=== PATIENT | male | born 1960 | race Caucasian/White ===

== ENCOUNTER 2023-03-06 16:15 | Emergency (ER) | payer OTHER ==
--- OUTSIDE RECORDS SUMMARY | 2023-03-06 16:19 | XMS REPORT | Continuity of Care Document ---
:1960 Author Organization [facility] t Address [address] [facility] [address] [place] [address] Care Team Providers Name Role Phone José Miguel Cordova Dimitris Primary Care Physician DOMINIQUE ALLEN Attending Clinician Unavailable KIMBERLEY WEINBERG Attending Clinician Unavailable KIMBERLEY WEINBERG Attending Clinician Unavailable , [facility] Bed Attending Clinician Unavailable Kimberley Weinberg MD Attending Clinician Doctor Unassigned, [place] Attending Clinician Unavailable AMELIE DAMON Attending Clinician Unavailable RINA PETE Attending Clinician Unavailable SYLVIA MADERA Attending Clinician Unavailable Sylvia Madera MD Attending Clinician [facility] Main Attending Clinician Unavailable Thu Morse Attending Clinician THU FERNANDEZ Attending Clinician Unavailable DOMINIQUE ALLEN M.D. Attending Clinician Unavailable YANET SYED D.O. Attending Clinician Unavailable Payers Payer Name Policy Type Policy Number Effective Date Expiration Date Edwin ayala [facility] WELLMED [id number] 2022 00:00:00 WELLMED/AARP [id number] 2022 MEDICARE ADVANTAGE 00:00:00 [employer] MEDICARE [id number] 2019 ERS 00:00:00 Problems Condition Condition Condition Status Onset Resolution Last Treating Co mments Source Name Details Category Date Date Treatment Clinician Date Acute pain Acute pain Disease Active U T of right of right -13 Health knee knee 00:00: 00 Internal Internal Disease Active UT derangemen derangemen 09-23 He alth t of right t of right 00:00: knee knee 00 Effusion Effusion Disease Active UT of knee of knee 09-23 Health joint joint 00:00: right right 00 Essential Essential Disease Active Uni vers hypertensi hypertensi 03-11 it y of on on 00:00: [place] [facility] ACC/AHA ACC/AHA Disease Active Univers stage A stage A 03-11 ity of heart heart 00:00: [place] failure failure Medical Branch Syncope, Syncope, Disease Active Unive rs unspecifie unspecifie 03-11 it y of d syncope d [place]ope [place] ACC/AHA ACC/AHA Disease Active Univers stage A stage A 03-11 ity of heart heart 00:00: [place] failure failure Medical Branch Obesity Obesity Disease Active Univers 03-11 ity of 00:00: [place] [facility] Left Left Problem Active UT shoulder shoulder Physic i pain pain ans Superior Superior Problem Active UT glenoid glenoid Physici labrum labrum ans lesion of lesion of left left shoulder, shoulder, initial initial encounter encounter Carpal Carpal Problem Active UT tunnel tunnel Physici syndrome syndrome ans of left of left wrist wrist Cubital Cubital Problem Active UT tunnel tunnel Physici syndrome syndrome ans on left on left Plantar Plantar Problem Active UT fasciitis, fasciitis, Ph ysici bilateral bilateral ans Neuropathi Neuropathi Problem Active U T c pain, c pain, Physici arm arm ans History of History of Problem Active U T cervical cervical Physic i spinal spinal ans surgery surgery Stenosis Stenosis Problem Active UT of of Physici cervical cervical ans spine spine Tarsal Tarsal Problem Active UT tunnel tunnel Physici syndrome syndrome ans of left of left side side Allergies, Adverse Reactions, Alerts Allergy Allergy Status Severity Reaction(s) Onset Inactive Treating Comm ents Source Name Type Date Date Clinician Cephalex Allergy Active UT in to 09-23 Health substanc 00:00: e 00 Ciproflo Allergy Active nauseanau UT xacin to 09-23 sea Health substanc 00:00: e 00 Clindamy Allergy Active Migraine UT jeovanny to 09-23 RODRÍGUEZ.Migrai Health substanc 00:00: ne RODRÍGUEZ. e 00 Gabapent Allergy Active Feet UT in to 09-23 swelling. Health substanc 00:00: Feet e 00 swelling. Hydrocod Allergy Active GI UT one to 09-23 upsetGI Health substanc 00:00: upset e 00 Irbesart Allergy Active Joint, UT an to 09-23 kidney Health substanc 00:00: pain.Join e 00 t, kidney pain. Testoste Allergy Active coughing. UT elie to 09-23 coughing. Health substanc 00:00: e 00 Valsarta Allergy Active joint UT n to 09-23 pain.join Health substanc 00:00: t pain. e 00 Zolpidem Allergy Active Heart UT to 09-23 palpitati Health substanc 00:00: ons, e 00 throat swelling, dysuria, diarrheaH eart palpitati ons, throat swelling, dysuria, diarrhea Amlodipi Allergy Active 2021-09 Other UT ne to 2- reaction( Health substanc 00:00: s): e 00 anaphylax is Lisinopr Allergy Active 2021-09 Other UT il to - reaction( Health substanc 00:00: s): e 00 shortness of breath NEBIVOLO DRUG Active Other-Cmnt 2018-09 Univ ers L INGREDI 09-29 ity of 00:00: [place] 00 Medical Branch Nebivolo Propensi Active Other - See 2018-09 U nivers l ty to comments 09-29 ity of adverse 00:00: [place] reaction 00 Medical s Branch Nebivolo Allergy Active 2018-09 Other UT l to 09-29 reaction( Health substanc 00:00: s): Other e 00 - See commentsS evere coughing, to the point of passing out.Sever e coughing, to the point of passing out. MELOXICA DRUG Active Other-Cmnt 2017-09 Univ ers M INGREDI 09-23 ity of 00:00: [place] 00 Medical Branch Meloxica Propensi Active 2017-09 Other UT m ty to 09-23 reaction( Health adverse 00:00: s): Other reaction 00 - See s commentsC auses bleeding in toes MUPIROCI DRUG Active Anaphylaxis Uni vers N INGREDI 03-09 ity of 00:00: [place] 00 Medical Branch LORATADI DRUG Active Other-Cmnt Univ ers NE INGREDI 03-09 ity of 00:00: [place] 00 Medical Branch IODINE DRUG Active SOB Univers INGREDI 03-09 ity of 00:00: [place] 00 Medical Branch IODINE Drug Active SOB Univers AND Class 03-09 ity of IODIDE 00:00: [place] CONTAINI 00 Medical NG Branch PRODUCTS PENICILL Drug Active ITCHING Univers INS Class - ity of 00:00: [place] 00 Medical Branch SULFA Drug Active Unknown-Cmnt Univ ers (SULFONA Class 03-09 ity of MIDE 00:00: [place] ANTIBIOT 00 Medical ICS) Branch Penicill Propensi Active Itching Unive rs ins ty to 03-09 ity of adverse 00:00: [place] reaction 00 Medical s Branch Sulfa Propensi Active Unknown - Unive rs (Sulfona ty to See comments 03-09 it y of mide adverse 00:00: [place] Antibiot reaction 00 Medica l ics) s Branch Iodine Propensi Active Shortness of Un jessika ty to Breath 03-09 ity of adverse 00:00: [place] reaction 00 Medical s Branch Iodine Propensi Active Shortness of Un jessika And ty to Breath 03-09 ity of Iodide adverse 00:00: [place] Containi reaction 00 Medica l ng s Branch Products Penicill Propensi Active Itching Unive rs ins ty to 03-09 ity of adverse 00:00: [place] reaction 00 Medical s Branch Sulfa Propensi Active Unknown - Unive rs (Sulfona ty to See comments 03-09 it y of mide adverse 00:00: [place] Antibiot reaction 00 Medica l ics) s Branch Loratadi Propensi Active Other UT ne ty to 03-09 reaction( Health adverse 00:00: s): Other reaction 00 - See s commentsU nable to urinate. Mupiroci Propensi Active Anaphylaxis U T n ty to 03-09 Health adverse 00:00: reaction 00 s Metronid Allergy Active itchingit UT azole to 11-19 con Health substanc 00:00: e 00 Sulfamet Allergy Active UT hoxazole to 11-19 Health -Trimeth substanc 00:00: oprim e 00 Iodinate Allergy Active Other UT d to 10-07 reaction( Health Contrast substanc 00:00: s): Media e 00 Anaphylax is Iodine Allergy Active Shortness of Other UT to breath 10-07 reaction( Health substanc 00:00: s): e 00 Hives, Unknown Penicill Allergy Active Itching Other UT ins to 10-07 reaction( Health substanc 00:00: s): e 00 Hives, Unknown Sulfa Allergy Active Other UT Antibiot to 10-07 reaction( Healt h ics substanc 00:00: s): e 00 Anaphylax is, Unknown Trimetho Allergy Active Other UT prim to 10-07 reaction( Health substanc 00:00: s): e 00 Anaphylax is Social History Social Habit Start Date Stop Date Quantity Comments Source History of Passive smoker [facility] tobacco use Exposure to 2022-12-24 2023-01-03 Not sure University SARS-CoV-2 00:00:00 22:39:00 [facility] (event) Supai Alcohol intake 2022-11-03 2022-11-03 [facility] 00:[facility] 00:00:00 non-drinker (finding) Tobacco use and 2022-09-23 2022-09-23 Smokeless tobacco [facility] exposure 00:00:00 00:00:00 non-user Alcohol Comment 2016-03-09 2016-03-09 once a month Univers ity of 00:00:00 00:00:00 [facility] Sex Assigned At [birth year] [facility] 00:00:00 00:00:00 Smoking Status Start Date Stop Date Source Never smoked tobacco [facility] Medications Ordered Filled Start Stop Current Ordering Indication Dosage Frequency Signature Comments Components Source Medication Medication Date Date Medication? Clinician (SIG) Name Name Azelastine- Yes Q12H every 12 UT Fluticasone - (twelve) Heal th 137-50 13:19: hours. MCG/ACT suspension benzonatate Yes 200mg Take 200 U T (Tessalon) 1-13 mg by Health 200 MG 13:19: mouth. capsule 00 Azelastine- Yes Q12H every 12 UT Fluticasone - (twelve) Heal th 137-50 13:19: hours. MCG/ACT 00 suspension benzonatate Yes 200mg Take 200 U T (Tessalon) 1-13 mg by Health 200 MG 13:19: mouth. capsule 00 Diclofenac 2022- No [id number] Apply UT Sodium 09-23 9104 [id number] topically H ealth (Voltaren) 00:00: 05:59 3D 3 (three) 1 % 00 :00 times a external day if gel needed (pain). methylPREDN 2022- No [id number] 4mg Take 1 UT ISolone 09-23 9104 tablet (4 Health (Medrol 00:00: 05:59 mg total) Dospak) 4 00 :00 by mouth 1 MG tablets (one) time for 1 dose. Use as directed by package instructio ns tiZANidine Yes UT (Zanaflex) 1-12 Health 4 MG tablet 00:00: 00 tiZANidine 0 Yes UT (Zanaflex) 1-12 Health 4 MG tablet 00:00: 00 albuterol 2021-09 Yes INHALE TWO UT 108 (90 2-12 (2) Health Base) 00:00: PUFF(S) BY MCG/ACT 00 MOUTH inhaler EVERY 6 HOURS NEEDED. bromphenira 2021-09 Yes TAKE 10 UT mine-pseudo 2-12 ML(S) BY [facility] ephedrine-D 00:00: MOUTH M 30- 00 EVERY 4 MG/5ML HOURS syrup NEEDED FOR 5 DAYS. albuterol 2021-09 Yes INHALE TWO UT 108 (90 2-12 (2) Health Base) 00:00: PUFF(S) BY MCG/ACT 00 MOUTH inhaler EVERY 6 HOURS NEEDED. bromphenira 2021-09 Yes TAKE 10 UT mine-pseudo 2-12 ML(S) BY [facility] ephedrine-D 00:00: MOUTH M 30-2-10 00 EVERY 4 MG/5ML HOURS syrup NEEDED FOR 5 DAYS. clomiPHENE 2021-09 Yes 25mg QD Take 25 mg U T (Clomid) 50 1-25 by mouth 1 He alth MG tablet 00:00: (one) time 00 each day. clomiPHENE 2021-09 Yes 25mg QD Take 25 mg U T (Clomid) 50 1-25 by mouth 1 He alth MG tablet 00:00: (one) time 00 each day. ciprofloxac 2021-09 Yes UT in (Cipro) -03 Health 500 MG 00:00: tablet 00 ciprofloxac 2021-09 Yes UT in (Cipro) 09-13 Health 500 MG 00:00: tablet 00 ALPRAZolam 2021-09 Yes 1{tbl} 1 tablet. UT (Xanax) 0.5 0-12 Health MG tablet 00:00: 00 ALPRAZolam 2021-09 Yes 1{tbl} 1 tablet. UT (Xanax) 0.5 0-12 Health MG tablet 00:00: 00 budesonide- 2020-09 Yes Q12H every 12 UT formoterol 0-05 (twelve) Healt h (Symbicort) 00:00: hours. 160-4.5 00 MCG/ACT inhaler budesonide- 2020-09 Yes Q12H every 12 UT formoterol 0-05 (twelve) Healt h (Symbicort) 00:00: hours. 160-4.5 00 MCG/ACT inhaler Diclofenac Diclofenac Yes DOMINIQUE ALLEN QD APPLY TO UT Sodium 1 % Sodium 1 % 5-28 M.D. LOWER Ph ysici GEL GEL 00:00: EXTREMITIE ans 00 S, 4 GM OF GEL TO AFFECTED AREA 4 TIMES DAILY. DO NOT APPLY MORE THAN 16 GM DAILY TO ANY ONE AFFECTED JOINT. Naproxen Naproxen 2019-0 Yes DOMINIQUE ALLEN Q0.3333D TAKE 1 UT 500 MG Oral 500 MG Oral 5-28 M.D. TABLET 3 Physici Tablet Tablet 00:00: TIMES ans 00 DAILY NEEDED. Pennsaid 2 Pennsaid 2 2019-0 Yes DOMINIQUE ALLEN Apply two UT % SOLN % SOLN 5-28 M.D. pumps Physici 00:00: (40mg) ans 00 topically to each affected area BID nebivolol 2018-09 Yes [id number] 10mg Take 10 mg Univers (BYSTOLIC) 1-19 by mouth ity o f 10 mg 15:09: daily. [place] tablet 53 Medical Branch budesonide- 2018-09 Yes [id number] 2{puff} Inhale 2 Univers formoterol 1-19 Puffs 2 ity of (SYMBICORT) 15:09: (two) [place] 160-4.5 53 times Medical mcg/actuati daily. Branch on inhaler clomiPHENE 2018-09 Yes 50mg Take 50 mg U nivers (SEROPHENE) 1-19 by mouth ity of 50 mg 15:09: daily. [place] tablet 53 Indication Medical s: / tab Branch methylPREDN 2018-09 Yes [id number] 1{packa Take 1 Univers ISolone 1-19 ge} Package by ity of (MEDROL 15:09: mouth [place] DOSE-CAROLYN) 4 53 SEE-INSTRU Me dical mg tablets CTIONS. Branch follow package directions benzonatate 2018-09 Yes [id number] 200mg Take 200 Univers (TESSALON) 1-19 mg by ity of 200 mg 15:09: mouth 3 [place] capsule 53 (three) Medical times Supai daily as needed for Cough. nebivolol 2018-09 Yes [id number] 10mg Take 10 mg Univers (BYSTOLIC) 1-19 by mouth ity o f 10 mg 15:09: daily. [place] tablet 53 Medical Branch budesonide- 2018-09 Yes [id number] 2{puff} Inhale 2 Univers formoterol 1-19 Puffs 2 ity of (SYMBICORT) 15:09: (two) [place] 160-4.5 53 times Medical mcg/actuati daily. Branch on inhaler clomiPHENE 2018-09 Yes 50mg Take 50 mg U nivers (SEROPHENE) 1-19 by mouth ity of 50 mg 15:09: daily. [place] tablet 53 Indication Medical s: /2 tab Branch methylPREDN 2018- Yes [id number] 1{packa Take 1 Univers ISolone 1-19 ge} Package by ity of (MEDROL 15:09: mouth [place] DOSE-CAROLYN) 4 53 SEE-INSTRU Me dical mg tablets CTIONS. Branch follow package directions benzonatate 2018-09 Yes [id number] 200mg Take 200 Univers (TESSALON) 1-19 mg by ity of 200 mg 15:09: mouth 3 [place] capsule 53 (three) Medical times Branch daily as needed for Cough. nebivolol 2018-09 Yes [id number] 10mg Take 10 mg Univers (BYSTOLIC) 1-19 by mouth ity o f 10 mg 15:09: daily. [place] tablet 53 Medical Branch budesonide- 2018-09 Yes [id number] 2{puff} Inhale 2 Univers formoterol 1-19 Puffs 2 ity of (SYMBICORT) 15:09: (two) [place] 160-4.5 53 times Medical mcg/actuati daily. Branch on inhaler clomiPHENE 2018-09 Yes 50mg Take 50 mg U nivers (SEROPHENE) 1-19 by mouth ity of 50 mg 15:09: daily. [place] tablet 53 Indication Medical s: 1/2 tab Branch methylPREDN 2018-09 Yes [id number] 1{packa Take 1 Univers ISolone 1-19 ge} Package by ity of (MEDROL 15:09: mouth [place] DOSE-CAROLYN) 4 53 SEE-INSTRU Me dical mg tablets CTIONS. Branch follow package directions benzonatate 2018-09 Yes [id number] 200mg Take 200 Univers (TESSALON) 1-19 mg by ity of 200 mg 15:09: mouth 3 [place] capsule 53 (three) Medical times Branch daily as needed for Cough. nebivolol 2018-09 Yes [id number] 10mg Take 10 mg Univers (BYSTOLIC) 1-19 by mouth ity o f 10 mg 15:09: daily. [place] tablet 53 Medical Branch budesonide- 2018-09 Yes [id number] 2{puff} Inhale 2 Univers formoterol 1-19 Puffs 2 ity of (SYMBICORT) 15:09: (two) [place] 160-4.5 53 times Medical mcg/actuati daily. Branch on inhaler clomiPHENE 2018-09 Yes 50mg Take 50 mg U nivers (SEROPHENE) 1-19 by mouth ity of 50 mg 15:09: daily. [place] tablet 53 Indication Medical s: 1/2 tab Branch methylPREDN 2018-09 Yes [id number] 1{packa Take 1 Univers ISolone 1-19 ge} Package by ity of (MEDROL 15:09: mouth [place] DOSE-CAROLYN) 4 53 SEE-INSTRU Me dical mg tablets CTIONS. Branch follow package directions benzonatate 2018-09 Yes [id number] 200mg Take 200 Univers (TESSALON) 1-19 mg by ity of 200 mg 15:09: mouth 3 [place] capsule 53 (three) Medical times Branch daily as needed for Cough. nebivolol 2018- Yes [id number] 10mg Take 10 mg Univers (BYSTOLIC) 1-19 by mouth ity o f 10 mg 15:09: daily. [place] tablet 53 Medical Branch budesonide- 2018-09 Yes [id number] 2{puff} Inhale 2 Univers formoterol 1-19 Puffs 2 ity of (SYMBICORT) 15:09: (two) [place] 160-4.5 53 times Medical mcg/actuati daily. Branch on inhaler clomiPHENE 2018-09 Yes 50mg Take 50 mg U nivers (SEROPHENE) 1-19 by mouth ity of 50 mg 15:09: daily. [place] tablet 53 Indication Medical s: 09/12 tab Branch methylPREDN 2018-09 Yes [id number] 1{packa Take 1 Univers ISolone 1-19 ge} Package by ity of (MEDROL 15:09: mouth [place] DOSE-CAROLYN) 4 53 SEE-INSTRU Me dical mg tablets CTIONS. Branch follow package directions benzonatate 2018- Yes [id number] 200mg Take 200 Univers (TESSALON) 1-19 mg by ity of 200 mg 15:09: mouth 3 [place] capsule 53 (three) Medical times Supai daily as needed for Cough. nebivolol 2018- Yes [id number] 10mg Take 10 mg Univers (BYSTOLIC) 1-19 by mouth ity o f 10 mg 15:09: daily. [place] tablet 53 Medical Branch budesonide- 2018-09 Yes [id number] 2{puff} Inhale 2 Univers formoterol 1-19 Puffs 2 ity of (SYMBICORT) 15:09: (two) [place] 160-4.5 53 times Medical mcg/actuati daily. Branch on inhaler clomiPHENE 2018-09 Yes 50mg Take 50 mg U nivers (SEROPHENE) 1-19 by mouth ity of 50 mg 15:09: daily. [place] tablet 53 Indication Medical s: 1/2 tab Branch methylPREDN 2018-09 Yes [id number] 1{packa Take 1 Univers ISolone 1-19 ge} Package by ity of (MEDROL 15:09: mouth [place] DOSE-CAROLYN) 4 53 SEE-INSTRU Me dical mg tablets CTIONS. Branch follow package directions benzonatate 2018- Yes [id number] 200mg Take 200 Univers (TESSALON) 1-19 mg by ity of 200 mg 15:09: mouth 3 [place] capsule 53 (three) Medical times Supai daily as needed for Cough. nebivolol 2018-09 Yes [id number] 10mg Take 10 mg Univers (BYSTOLIC) 1-19 by mouth ity o f 10 mg 15:09: daily. [place] tablet 53 Medical Branch budesonide- 2018-09 Yes [id number] 2{puff} Inhale 2 Univers formoterol 1-19 Puffs 2 ity of (SYMBICORT) 15:09: (two) [place] 160-4.5 53 times Medical mcg/actuati daily. Branch on inhaler clomiPHENE 2018-09 Yes 50mg Take 50 mg U nivers (SEROPHENE) 1-19 by mouth ity of 50 mg 15:09: daily. [place] tablet 53 Indication Medical s: 1/2 tab Branch methylPREDN 2018-09 Yes [id number] 1{packa Take 1 Univers ISolone 1-19 ge} Package by ity of (MEDROL 15:09: mouth [place] DOSE-CAROLYN) 4 53 SEE-INSTRU Me dical mg tablets CTIONS. Branch follow package directions benzonatate 2018-09 Yes [id number] 200mg Take 200 Univers (TESSALON) 1-19 mg by ity of 200 mg 15:09: mouth 3 [place] capsule 53 (three) Medical times Supai daily as needed for Cough. nebivolol 2018-09 Yes [id number] 10mg Take 10 mg Univers (BYSTOLIC) 1-19 by mouth ity o f 10 mg 15:09: daily. [place] tablet 53 Medical Branch budesonide- 2018-09 Yes [id number] 2{puff} Inhale 2 Univers formoterol 1-19 Puffs 2 ity of (SYMBICORT) 15:09: (two) [place] 160-4.5 53 times Medical mcg/actuati daily. Branch on inhaler clomiPHENE 2018-09 Yes 50mg Take 50 mg U nivers (SEROPHENE) 1-19 by mouth ity of 50 mg 15:09: daily. [place] tablet 53 Indication Medical s: 1/2 tab Branch methylPREDN 2018-09 Yes [id number] 1{packa Take 1 Univers ISolone 1-19 ge} Package by ity of (MEDROL 15:09: mouth [place] DOSE-CAROLYN) 4 53 SEE-INSTRU Me dical mg tablets CTIONS. Branch follow package directions benzonatate 2018-09 Yes [id number] 200mg Take 200 Univers (TESSALON) 1-19 mg by ity of 200 mg 15:09: mouth 3 [place] capsule 53 (three) Medical times Supai daily as needed for Cough. nebivolol 2018-09 Yes [id number] 10mg Take 10 mg Univers (BYSTOLIC) 1-19 by mouth ity o f 10 mg 15:09: daily. [place] tablet 53 Medical Branch budesonide- 2018-09 Yes [id number] 2{puff} Inhale 2 Univers formoterol 1-19 Puffs 2 ity of (SYMBICORT) 15:09: (two) [place] 160-4.5 53 times Medical mcg/actuati daily. Branch on inhaler clomiPHENE 2018-09 Yes 50mg Take 50 mg U nivers (SEROPHENE) 1-19 by mouth ity of 50 mg 15:09: daily. [place] tablet 53 Indication Medical s: 1/2 tab Branch methylPREDN 2018-09 Yes [id number] 1{packa Take 1 Univers ISolone 1-19 ge} Package by ity of (MEDROL 15:09: mouth [place] DOSE-CAROLYN) 4 53 SEE-INSTRU Me dical mg tablets CTIONS. Branch follow package directions benzonatate 2018-09 Yes [id number] 200mg Take 200 Univers (TESSALON) 1-19 mg by ity of 200 mg 15:09: mouth 3 [place] capsule 53 (three) Medical times Supai daily as needed for Cough. nebivolol 2018-09 Yes [id number] 10mg Take 10 mg Univers (BYSTOLIC) 1-19 by mouth ity o f 10 mg 15:09: daily. [place] tablet 53 Medical Branch budesonide- 2018-09 Yes [id number] 2{puff} Inhale 2 Univers formoterol 1-19 Puffs 2 ity of (SYMBICORT) 15:09: (two) [place] 160-4.5 53 times Medical mcg/actuati daily. Branch on inhaler clomiPHENE 2018-09 Yes 50mg Take 50 mg U nivers (SEROPHENE) 1-19 by mouth ity of 50 mg 15:09: daily. [place] tablet 53 Indication Medical s: /2 tab Branch methylPREDN 2018-09 Yes [id number] 1{packa Take 1 Univers ISolone 1-19 ge} Package by ity of (MEDROL 15:09: mouth [place] DOSE-CAROLYN) 4 53 SEE-INSTRU Me dical mg tablets CTIONS. Branch follow package directions benzonatate 2018-09 Yes [id number] 200mg Take 200 Univers (TESSALON) 1-19 mg by ity of 200 mg 15:09: mouth 3 [place] capsule 53 (three) Medical times Branch daily as needed for Cough. clomiPHENE 2018-09 Yes 50mg Take 50 mg U nivers (SEROPHENE) 1-19 by mouth ity of 50 mg 09:09: daily. [place] tablet 53 Indication Medical s: 09/12 tab Branch methylPREDN 2018-09 Yes [id number] 1{packa Take 1 Univers ISolone 1-19 ge} Package by ity of (MEDROL 09:09: mouth [place] DOSE-CAROLYN) 4 53 SEE-INSTRU Me dical mg tablets CTIONS. Branch follow package directions benzonatate 2018-09 Yes [id number] 200mg Take 200 Univers (TESSALON) 1-19 mg by ity of 200 mg 09:09: mouth 3 [place] capsule 53 (three) Medical times Branch daily as needed for Cough. nebivolol 2018-09 Yes [id number] 10mg Take 10 mg Univers (BYSTOLIC) 1-19 by mouth ity o f 10 mg 09:09: daily. [place] tablet 53 Medical Branch budesonide- 2018-09 Yes [id number] 2{puff} Inhale 2 Univers formoterol 1-19 Puffs 2 ity of (SYMBICORT) 09:09: (two) [place] 160-4.5 53 times Medical mcg/actuati daily. Branch on inhaler clomiPHENE 2018-09 Yes 50mg Take 50 mg U nivers (SEROPHENE) 1-19 by mouth ity of 50 mg 09:09: daily. [place] tablet 53 Indication Medical s: /2 tab Branch methylPREDN 2018-09 Yes [id number] 1{packa Take 1 Univers ISolone 1-19 ge} Package by ity of (MEDROL 09:09: mouth [place] DOSE-CAROLYN) 4 53 SEE-INSTRU Me dical mg tablets CTIONS. Branch follow package directions benzonatate 2018- Yes [id number] 200mg Take 200 Univers (TESSALON) 1-19 mg by ity of 200 mg 09:09: mouth 3 [place] capsule 53 (three) Medical times Supai daily as needed for Cough. nebivolol 2018-09 Yes [id number] 10mg Take 10 mg Univers (BYSTOLIC) 1-19 by mouth ity o f 10 mg 09:09: daily. [place] tablet 53 Medical Branch budesonide- 2018-09 Yes [id number] 2{puff} Inhale 2 Univers formoterol 1-19 Puffs 2 ity of (SYMBICORT) 09:09: (two) [place] 160-4.5 53 times Medical mcg/actuati daily. Branch on inhaler clomiPHENE 2018-09 Yes 50mg Take 50 mg U nivers (SEROPHENE) 1-19 by mouth ity of 50 mg 09:09: daily. [place] tablet 53 Indication Medical s: 1/2 tab Branch methylPREDN 2018-09 Yes [id number] 1{packa Take 1 Univers ISolone 1-19 ge} Package by ity of (MEDROL 09:09: mouth [place] DOSE-CAROLYN) 4 53 SEE-INSTRU Me dical mg tablets CTIONS. Branch follow package directions benzonatate 2018-09 Yes [id number] 200mg Take 200 Univers (TESSALON) 1-19 mg by ity of 200 mg 09:09: mouth 3 [place] capsule 53 (three) Medical times Supai daily as needed for Cough. nebivolol 2018-09 Yes [id number] 10mg Take 10 mg Univers (BYSTOLIC) 1-19 by mouth ity o f 10 mg 09:09: daily. [place] tablet 53 Medical Branch budesonide- 2018-09 Yes [id number] 2{puff} Inhale 2 Univers formoterol 1-19 Puffs 2 ity of (SYMBICORT) 09:09: (two) [place] 160-4.5 53 times Medical mcg/actuati daily. Branch on inhaler clomiPHENE 2018-09 Yes 50mg Take 50 mg U nivers (SEROPHENE) 1-19 by mouth ity of 50 mg 09:09: daily. [place] tablet 53 Indication Medical s: 1/2 tab Branch methylPREDN 2018-09 Yes [id number] 1{packa Take 1 Univers ISolone 1-19 ge} Package by ity of (MEDROL 09:09: mouth [place] DOSE-CAROLYN) 4 53 SEE-INSTRU Me dical mg tablets CTIONS. Branch follow package directions benzonatate 2018-09 Yes [id number] 200mg Take 200 Univers (TESSALON) 1-19 mg by ity of 200 mg 09:09: mouth 3 [place] capsule 53 (three) Medical times Branch daily as needed for Cough. nebivolol 2018-09 Yes [id number] 10mg Take 10 mg Univers (BYSTOLIC) 1-19 by mouth ity o f 10 mg 09:09: daily. [place] tablet 53 Medical Branch budesonide- 2018-09 Yes [id number] 2{puff} Inhale 2 Univers formoterol 1-19 Puffs 2 ity of (SYMBICORT) 09:09: (two) [place] 160-4.5 53 times Medical mcg/actuati daily. Branch on inhaler clomiPHENE 2018-09 Yes [id number] 50mg Take 1 Univers 50 mg 1-19 tablet by ity of tablet 00:00: mouth [place] 00 SEE-INSTRU Medical CTIONS. Branch Take 1/2 tab PO daily clomiPHENE 2018-09 Yes [id number] 50mg Take 1 Univers 50 mg 1-19 tablet by ity of tablet 00:00: mouth [place] 00 SEE-INSTRU Medical CTIONS. Branch Take 1/2 tab PO daily clomiPHENE 2018-09 Yes [id number] 50mg Take 1 Univers 50 mg 1-19 tablet by ity of tablet 00:00: mouth [place] 00 SEE-INSTRU Medical CTIONS. Branch Take 1/2 tab PO daily clomiPHENE 2018-09 Yes [id number] 50mg Take 1 Univers 50 mg 1-19 tablet by ity of tablet 00:00: mouth [place] 00 SEE-INSTRU Medical CTIONS. Branch Take 1/2 tab PO daily clomiPHENE 2018-09 Yes [id number] 50mg Take 1 Univers 50 mg 1-19 tablet by ity of tablet 00:00: mouth [place] 00 SEE-INSTRU Medical CTIONS. Branch Take 1/2 tab PO daily clomiPHENE 2018-09 Yes [id number] 50mg Take 1 Univers 50 mg 1-19 tablet by ity of tablet 00:00: mouth [place] 00 SEE-INSTRU Medical CTIONS. Branch Take 1/2 tab PO daily clomiPHENE 2019- Yes [id number] 50mg Take 1 Univers 50 mg 1-19 tablet by ity of tablet 00:00: mouth [facility] Medical CTIONS. Branch Take 1/2 tab PO daily clomiPHENE 2019- Yes [id number] 50mg Take 1 Univers 50 mg 1-19 tablet by ity of tablet 00:00: mouth [place] SEE-INSTR Medical CTIONS. Branch Take 1/2 tab PO daily clomiPHENE 2019- Yes [id number] 50mg Take 1 Univers 50 mg 1-19 tablet by ity of tablet 00:00: mouth [place] SEE-INSTR Medical CTIONS. Branch Take 1/2 tab PO daily clomiPHENE 2019- Yes [id number] 50mg Take 1 Univers 50 mg 1-19 tablet by ity of tablet 00:00: mouth [place] SEE-INSTR Medical CTIONS. Branch Take 1/2 tab PO daily clomiPHENE 2019- Yes [id number] 50mg Take 1 Univers 50 mg 1-19 tablet by ity of tablet 00:00: mouth SEE-INSTR Medical CTIONS. Branch Take 1/2 tab PO daily clomiPHENE 2019- Yes [id number] 50mg Take 1 Univers 50 mg 1-19 tablet by ity of tablet 00:00: mouth [place] [facility] Medical CTIONS. Branch Take 1/2 tab PO daily clomiPHENE 2019- Yes [id number] 50mg Take 1 Univers 50 mg 1-19 tablet by ity of tablet 00:00: mouth SEE-INSTR Medical CTIONS. Branch Take 1/2 tab PO daily clomiPHENE 2019- Yes [id number] 50mg Take 1 Univers 50 mg 1-19 tablet by ity of tablet 00:00: mouth SEE-INSTR Medical CTIONS. Branch Take 1/2 tab PO daily naproxen 2019-0 Yes TAKE ONE UT (Naprosyn) 7-23 TABLET BY Heal th 500 MG 00:00: MOUTH tablet 00 TWICE A DAY WITH FOOD OR MILK naproxen 2019- Yes TAKE ONE UT (Naprosyn) 7-23 TABLET BY Heal th 500 MG 00:00: MOUTH tablet 00 TWICE A DAY WITH FOOD OR MILK Vitamin D Vitamin D Yes DOMINIQUE ALLEN TAKE 1 UT (Ergocalcif (Ergocalcif 7-23 M.D. CAPSULE Physici mahamed) 1.25 mahamed) 1.25 00:00: WEEKLY. ans MG (07604 MG (54928 00 UT) Oral UT) Oral Capsule Capsule Naproxen Naproxen Yes DOMINIQUE ALLEN Q0.3333D TAKE 1 UT 500 MG Oral 500 MG Oral 7-23 M.D. TABLET 3 Physici Tablet Tablet 00:00: TIMES ans 00 DAILY NEEDED. Diclofenac Diclofenac Yes DOMINIQUE PETERSONEKS QD APPLY TO UT Sodium 1 % Sodium 1 % 7- M.D. UPPER Ph ysici GEL GEL 00:00: EXTREMITIE ans 00 S, 2 GM OF GEL TO AFFECTED AREA 4 TIMES DAILY. DO NOT APPLY MORE THAN 8 GM DAILY TO ANY ONE AFFECTED JOINT. Lyrica 75 Lyrica 75 Yes DOMINIQUE ALLEN Q0.5D TAKE 1 UT MG Oral MG Oral 1-16 M.D. CAPSULE Physic i Capsule Capsule 00:00: TWICE ans 00 DAILY. Acetaminoph Acetaminoph Yes DOMINIQUE ALLEN TAKE 1 UT en-Codeine en-Codeine 1-16 M.D. TABLET P hysici #3 300-30 #3 300-30 00:00: EVERY 4 TO ans MG Oral MG Oral 00 6 HOURS Tablet Tablet NEEDED FOR PAIN. Vital Signs Vital Name Observation Time Observation Value Comments Source Body height 2022-09-23 19:06:00 194.3 cm [facility] Body weight 2022-09-23 19:06:00 134.537 kg [facility] BMI 2022-09-23 19:06:00 35.63 [facility]2 [facility] 2020-03-30 21:20:00 136 mm[Hg] Univer sity of pressure [facility] Diastolic blood 2020-03-30 21:20:00 80 mm[facility]Hg] [facility] Heart rate 2020-03-30 21:20:00 71 /min [facility] Respiratory rate 2020-03-30 21:20:00 19 /min [facility] Body weight 2020-03-30 21:20:00 138.347 kg [facility] BMI 2020-03-30 21:20:00 35.25 kg/m2 [facility] ty of [place] [facility] Body height 2020-03-30 21:20:00 198.1 cm Universi ty of [facility] Body temperature 2020-03-30 13:53:00 36.83 Justine [facility] ersity [facility] Body height 2020-03-30 13:53:00 172.7 cm Universi ty of [facility] Oxygen saturation in 2020-03-30 13:53:00 98 /min University of Arterial blood by [facility] Pulse oximetry Branch Systolic blood 2020-02-24 13:16:00 139 mm[Hg] Univer sity of pressure [facility] Diastolic blood 2020-02-24 13:16:00 82 mm[Hg] Unive rsity of [facility] Heart rate 2020-02-24 13:16:00 80 /min Universi ty of [facility] Body temperature 2020-02-24 13:16:00 36.83 Justine [facility] Respiratory rate 2020-02-24 13:16:00 16 /min [facility] Body height 2020-02-24 13:16:00 190.5 cm Universi ty of [facility] Body weight 2020-02-24 13:16:00 137.168 kg Universi ty of [facility] BMI 2020-02-24 13:16:00 37.80 kg/m2 Universi ty of [facility] Oxygen saturation in 2020-02-24 13:16:00 98 /min University of Arterial blood by [facility] Pulse oximetry Branch Procedures Procedure Date / Time Performing Clinician Source Performed EXTERNAL PROVIDER 2022-12-29 05:01:00 Doctor Unassigned, No [facility] SLEEP STUDY DATA REPORT 2022-07-06 05:01:00 Doctor Unassigned, N o [facility] POCT URINALYSIS AUTO 2020-03-30 21:22:00 Sylvia Madera [facility] POCT URINALYSIS AUTO 2020-02-24 13:20:00 Sylvia Madera [facility] PATIENT QUESTIONNAIRE 2020-02-24 05:01:00 Doctor Unassigned, No [facility] [U] XRAY FOOT MIN 3 VWS 2019-11-04 00:00:00 [place] P hysicians LEFT [id number] Encounters Start End Encounter Admission Attending Care Care Encounter Source Date/Time Date/Time Type Type Clinicians Facility Department ID 2023-01-27 Outpatient [facility] [id number] [place] 14:24:20 [id number] [facility] 2023-01-17 Outpatient [facility] [id number] [place] 17:17:32 [id number] [facility] 2023-01-11 Outpatient [facility] [id number] [place] 14:05:56 [id number] [facility] 2022-11-18 Outpatient [facility] [id number] [place] 13:16:36 [id number] [facility] 2022-11-03 Outpatient [facility] [id number] [place] 10:59:01 [id number] [facility] 2022-10-31 Outpatient [facility] [id number] [place] 09:16:50 [id number] [facility] 2022-09-23 Outpatient [facility] [id number] [place] 12:33:28 [id number] [facility] 2022-09-16 Outpatient [facility] [id number] [place] 14:04:19 [id number] [facility] 2022-09-15 Outpatient [facility] [id number] [place] 12:11:27 [id number] [facility] 2023-03-23 2023-03-23 Outpatient DOMINIQUE ALLEN [facility] [id number] [place] 14:15:00 14:15:00 [facility] 2023-03-15 2023-03-15 Outpatient R KIMBERLEY WEINBERG [facility] [id number] [facility] 20:00:00 20:00:00 KIMBERLEY WEINBERG ity [facility] 2023-01-17 2023-01-17 Outpatient DOMINIQUE ALLEN [facility] [id number] [place] 15:30:00 16:40:09 [facility] 2023-01-03 2023-01-03 Auger Press Operator 1, Andrés Sleep Lab Bed [facility] 1. 2.840.114 [id number] [facility] 20:00:00 22:30:00 Visit Kimberley Weinberg WILLOWS 350.1.13. 10 ity [facility] [id number] [facility] [id number] [facility] 193 Branch 2023-01-03 2023-01-03 Outpatient R KIMBERLEY WEINBERG [facility] [id number] [facility] 20:00:00 20:00:00 KIMBERLEY WEINBERG itceline [facility] 2022-12-29 2022-12-29 Outpatient DOMINIQUE ALLEN [facility] [id number] [place] 15:15:00 15:15:00 Health 2022-12-29 2022-12-29 Orders Doctor EVE 1.2.840.114 [id number] [facility] 00:00:00 00:00:00 Only Unassigned, DEVON [id number] ity of [facility] [id number] [facility] [id number] [facility] 009 Branch 2022-12-15 2022-12-15 Outpatient DOMINIQUE ALLEN [facility] [id number] [place] 13:00:00 13:00:00 [facility] 2022-11-03 2022-11-03 Office Dominique Allen [facility] 1.2.840.114 [id number] [place] 09:15:00 11:00:00 Visit JIM [id number] [facility] MEDICAL 9.2.7.2.686 PLA[place] 1 [id number] 5 2022-10-31 2022-10-31 Outpatient MARISOL [facility] [id number] [place] 10:00:00 10:00:00 AMELIE [facility] 2022-09-23 2022-09-23 Outpatient [facility] [id number] [place] 00:00:00 14:18:28 [facility] 2022-09-23 2022-09-23 Office CHRIS PETE [facility] 1.2.840.114 [id number] [place] 13:30:00 14:04:00 Visit RINA BURLESON 350.1.13.58 [facility] MEDICAL [id number] PLA[place] 3 [id number] 5 2022-07-06 2022-07-06 Auger Press Operator 1, Andrés Sleep Lab Bed [facility] 1. 2.840.114 [id number] [facility] 20:00:00 22:30:00 Visit Kimberley Weinberg 350.1.13. 10 ity [facility] [id number] [id number] [facility] 193 Branch 2022-07-06 2022-07-06 Outpatient R KIMBERLEY WEINBERG [facility] [id number] Univers 20:00:00 20:00:00 KIMBERLEY WEINBERG itceline [facility] 2022-07-06 2022-07-06 Orders Doctor EVE 1.2.840.114 [id number] Univers 00:00:00 00:00:00 Only Unassigned, DEVON 350.1.13.10 ity of [facility] 4.2.7.2.686 Harry as [id number] [facility] 009 Branch 2022-07-04 2022-07-04 Outpatient R [facility] [id number] Univers 11:00:00 11:00:00 ity [facility] 2022-05-18 2022-05-18 [facility] [id number] Univers 20:00:00 20:00:00 ALEX [facility] 2022-05-17 2022-05-17 Outpatient R [facility] [id number] Univers 13:00:00 13:00:[facility] 2020-07-20 2020-07-20 [facility] [id number] Univers 15:15:00 15:15:00 [facility] 2020-07-02 2020-07-02 Outpatient [facility] [id number] Univers 13:30:00 13:30:00 [facility] 2020-03-30 2020-03-31 [facility] 1.2.840.114 [id number] Univers 15:36:03 08:19:05 Visit Sylvia Trujilloton 350.1.13.10 i ty of [place].2.[place] [facility] [id number] [place] dical [facility] 204 Branch [facility] 2020-03-30 2020-03-30 Outpatient [facility] [id number] Univers 09:00:00 09:00:00 SYLVIA ity [facility] 2020-03-27 2020-03-27 Auger Press Operator Trav, Adc Lab Main [facility] 1.2.8 40.114 [id number] Univers 13:56:24 14:11:24 Visit Sylvia Madera 350.1.13.10 ity of [place].2.[place] Profess[place] [phone] [address] 2020-03-27 2020-03-27 Outpatient R [facility] [id number] Univers 14:00:00 14:00:00 SYLVIA ity [facility] 2020-02-27 2020-02-27 [facility] 1.2.840.114 [id number] Univers 00:00:00 00:00:00 Sylvia Nicole 350.1.13.10 i ty [id number] Profess[place] [phone] [address] 2020-02-24 2020-02-24 Auger Press Operator Trav, Adc Lab Main [facility] 1.2.8 40.114 [id number] Univers 09:06:14 09:21:14 Visit Sylvia Madera 350.1.13.10 ity of [place] Profess[place] [phone] [address] 2020-02-24 2020-02-24 [facility] 1.2.840.114 [id number] Univers 07:54:16 08:49:50 Visit Syliva Rivera 350.1.13.10 i ty [place] Profess[place] [id number] [address] 2020-02-24 2020-02-24 Outpatient R [facility] [id number] Univers 08:00:00 08:00:00 SYLVIA ity [facility] 2020-02-24 2020-02-24 Orders Doctor PRADO 1.2.840.114 [id number] Univers 00:00:00 00:00:00 Only Unassigned, DEVON 350.1.13.10 [facility] 4.2.7.2.686 Harry as [phone] [address] 2020-02-20 2020-02-20 Auger Press Operator Andrés Ravi Lab Main [facility] 1.2.8 40.114 [id number] Univers 13:34:14 13:49:14 Visit Thu Fernandez 350.1.13.10 ity of [place] Profess[place] [phone] [place] dical [address] 2020-02-20 2020-02-20 Outpatient R REBECCA, [facility] [id number] Univers 13:15:00 13:15:00 THU underwood [facility] 2020-02-06 2020-02-06 Appointmen CHRIS ALLEN [facility] [id number] [place] 10:30:00 10:30:00 t; DOMINIQUE ALLEN M.D. - Jim FOX M.D. [facility] 2020-01-30 2020-01-30 Outpatient R ALZWERI, [facility] [id number] Univers 15:30:00 15:30:00 SYLVIA kj [facility] 2020-01-28 2020-01-28 Outpatient R GRAMM, [facility] [id number] Univers 09:00:00 09:00:00 THU underwood [facility] 2019-11-05 2019-11-05 Appointmen CHRIS ALLEN [facility]oped[facility] [id number] [place] 10:00:00 10:00:00 t; DOMINIQUE ALLEN M.D. - [place] [facility] EVAN, M.D. [facility] 2019-09-19 2019-09-19 Appointmen [facility] [facility] UTP [id number] [place] 13:30:00 13:30:00 t; DOMINIQUE ALLEN M.D. P hysici EVAN, M.D. [facility] 2019-05-16 2019-05-16 Appointmustapha SYED [facility] [id number] [place] 10:15:00 10:15:00 t; YANET SYED D.O. P hysici JASON, ans D.OBiju 2019-04-25 2019-04-25 Appointmen [place], [facility] UTP [id number] [place] 10:30:00 10:30:00 t; DOMINIQUE ALLEN M.D. P sujatha FOX M.D. ans 2019-04-02 2019-04-02 [facility] [id number] [place] 15:15:00 15:15:00 t; DOMINIQUE ALLEN M.D. P hysici EVAN, M.D. ans 2018-12-25 2018-12-25 [facility] [id number] [place] 10:00:00 10:00:00 t; DOMINIQUE ALLEN M.D. P hysici EVAN, M.D. ans 2018-10-30 2018-10-30 [facility] [place] [id number] [place] 10:15:00 10:15:00 t; DOMINIQUE ALLEN M.D. P hysici EVAN, M.D. ans 2018-07-31 2018-07-31 [facility] [place] UTP [id number] [place] 10:30:00 10:30:00 t; DOMINIQUE ALLEN M.D. P hysici EVAN, M.D. ans 2018-05-31 2018-05-31 [facility] [place] UTP [id number] [place] 11:00:00 11:00:00 t; DOMINIQUE ALLEN M.D. P hysici EVAN, M.D. ans 2018-03-20 2018-03-20 [facility] [place], [facility] UTP [id number] [place] 10:15:00 10:15:00 t; DOMINIQUE ALLEN M.D. P hysici EVAN, M.D. ans 2017-12-19 2017-12-19 Appointmen [place], [facility] UTP [id number] [place] 10:15:00 10:15:00 t; DOMINIQUE ALLEN M.D. P hysici EVAN, M.D. ans 2017-11-07 2017-11-07 [facility] [place] UTP [id number] [place] 10:45:00 10:45:00 t; DOMINIQUE ALLEN M.D. P sujatha FOX M.D. ans Results Test Description Test Time Test Comments Results Result Comments Source POCT URINALYSIS, INSTRUMENT 2020-03-30 21:24:00 Test Item Value Reference Range Interpretation Comme nts POCT U SP GRAV (test code = 3255) 1.015 mg/dl 1.005-1.025 POCT PH U (test code = 3254) 7.5 mg/dl 5-8 POCT U LEUK EST (test code = 3263) negative Negative - Negative POCT U NIT (test code = 3262) negative Negative - Negative POCT U PROT (test code = 3259) negative Negative - Negative POCT U GLU (test code = 3256) negative Negative - Negative POCT U KETONE (test code = 3258) negative Negative - Negative POCT U UROBILI (test code = 3260) 0.2 mg/dl 0.2-1 POCT U BILI (test code = 3261) negative Negative - Negative POCT U BLD (test code = 3257) negative Negative - Negative POCT U COLOR (test code = 3266) yellow POCT U APPEAR (test code = 3267) clear [facility] [id number] 21:24:00 Test Item Value Reference Range Interpretation Comments POCT U SP GRAV (test code = 1.015 mg/dl 1.005-1.025 3255) POCT PH U (test code = 3254) 7.5 mg/dl 5-8 POCT U LEUK EST (test code = negative Negative - Negative 3263) POCT U NIT (test code = 3262) negative Negative - Negative POCT U PROT (test code = negative Negative - Negative 3259) POCT U GLU (test code = 3256) negative Negative - Negative POCT U KETONE (test code = negative Negative - Negative 3258) POCT U UROBILI (test code = 0.2 mg/dl 0.2-1 3260) POCT U BILI (test code = negative Negative - Negative 3261) POCT U BLD (test code = 3257) negative Negative - Negative POCT U COLOR (test code = yellow 3266) POCT U APPEAR (test code = clear 3267) [facility] [id number] 21:24:00 Test Item Value Reference Range Interpretation Comments POCT U SP GRAV (test code = 1.015 mg/dl 1.005-1.025 3255) POCT PH U (test code = 3254) 7.5 mg/dl 5-8 POCT U LEUK EST (test code = negative Negative - Negative 3263) POCT U NIT (test code = 3262) negative Negative - Negative POCT U PROT (test code = negative Negative - Negative 3259) POCT U GLU (test code = 3256) negative Negative - Negative POCT U KETONE (test code = negative Negative - Negative 3258) POCT U UROBILI (test code = 0.2 mg/dl 0.2-1 3260) POCT U BILI (test code = negative Negative - Negative 3261) POCT U BLD (test code = 3257) negative Negative - Negative POCT U COLOR (test code = yellow 3266) POCT U APPEAR (test code = clear 3267) [facility] URINALYSIS, [id number] 13:21:00 Test Item Value Reference Range Interpretation Comments POCT U SP GRAV (test code = 1.030 mg/dl 1.005-1.025 A 3255) POCT PH U (test code = 3254) 5.5 mg/dl 5-8 POCT U LEUK EST (test code = Negative Negative - Negative 3263) POCT U NIT (test code = 3262) Negative Negative - Negative POCT U PROT (test code = Negative Negative - Negative 3259) POCT U GLU (test code = 3256) Negative Negative - Negative POCT U KETONE (test code = Negative Negative - Negative 3258) POCT U UROBILI (test code = 0.2 mg/dl 0.2-1 3260) POCT U BILI (test code = Negative Negative - Negative 3261) POCT U BLD (test code = 3257) Negative Negative - Negative POCT U COLOR (test code = yellow 3266) POCT U APPEAR (test code = clear 3267) Lab Interpretation (test code Abnormal = 59001-3) [facility] URINALYSIS, [id number] 13:21:00 Test Item Value Reference Range Interpretation Comments POCT U SP GRAV (test code = 1.030 mg/dl 1.005-1.025 A 3255) POCT PH U (test code = 3254) 5.5 mg/dl 5-8 POCT U LEUK EST (test code = Negative Negative - Negative 3263) POCT U NIT (test code = 3262) Negative Negative - Negative POCT U PROT (test code = Negative Negative - Negative 325) POCT U GLU (test code = 3256) Negative Negative - Negative POCT U KETONE (test code = Negative Negative - Negative 3258) POCT U UROBILI (test code = 0.2 mg/dl 0.2-1 3260) POCT U BILI (test code = Negative Negative - Negative 326) POCT U BLD (test code = 3257) Negative Negative - Negative POCT U COLOR (test code = yellow 3266) POCT U APPEAR (test code = clear 3266) Lab Interpretation (test code Abnormal = 55097-3) [facility]
[2023-03-06 16:37] LABS: Absolute Lymphocytes (CBC) 2.8 K/uL (0.7-4.9); Hematocrit 44.1 % (39.6-49.0); Lymphocytes % 26.7 % (15.3-44.8); MCV 89.2 fL (80-100); MPV 7.1 fL (7.6-11.3); RBC Red Blood Cell Count 4.95 M/uL (4.33-5.43)
[2023-03-06] MEDS ORDERED: MAGNESIUM SULFATE 1 gm IVPB 1 GM/100 ML BAG IV ONE (16:40)
[2023-03-06] MEDS ORDERED: ONDANSETRON 4 MG/2 ML VIAL ONE (16:40)
[2023-03-06] MEDS ORDERED: TAMSULOSIN 0.4 MG SR CAP ONE (16:40)
[2023-03-06] MEDS ORDERED: NA CHLORIDE 0.9% 1,000 ML ONE (16:40)
[2023-03-06] MEDS ORDERED: MORPHINE 4 MG/ML SYR ONE (16:40)
[2023-03-06 16:46] LABS: Protime INR 1.07
[2023-03-06 16:55] LABS: Albumin 3.9 g/dL (3.4-5.0); Bilirubin Total 0.3 mg/dL (0.2-1.0); Potassium 3.5 mEq/L (3.5-5.1); Protein, Total 8.2 g/dL (6.4-8.2)
[2023-03-06 16:56] LABS: Specific Gravity 1.024 (1.005-1.030); Urine Bacteria 20-50 /HPF (<20); Urine Bilirubin NEGATIVE (Negative); Urine Blood 3+ (OVER) (Negative); Urine Clarity Extremely Turbid (Clear); Urine Color Light-Orange (Yellow); Urine Crystals Unidentified Few /HPF (None Seen); Urine Glucose NEGATIVE (Negative); Urine Mucus 2+ /HPF (None Seen); Urine Protein 2+ (Negative); Urine RBC >50 /HPF (None Seen); Urine Urobilinogen Normal (Normal); Urine pH 5.5 (5.0-7.0)
--- NOTE | 2023-03-06 17:43 | RAD REPORT ---
EXAM DESCRIPTION: CT - [place] Protocol - 03/06/2023 5:28 pm CLINICAL HISTORY: Abdominal pain. Left flank pain COMPARISON: None. TECHNIQUE: Computed axial tomography of the abdomen pelvis was obtained without oral or IV contrast. Lack of IV and oral contrast limits evaluation of solid organs, appendix, bowel, and vessels. Rivera l reformatted images were obtained and reviewed. All CT scans are performed using dose optimization technique as appropriate and may include automated exposure control or mA/KV adjustment according to patient size. FINDINGS: 2 millimeter calculus distal left ureter with mild hydronephrosis Renal calculus is not seen. No right ureteral calculus The liver, spleen, pancreas and adrenals appear grossly normal There is no evidence of diverticulitis. Mild posterior subluxation of L5 on S1. Small to moderate umbilical hernia IMPRESSION: 2 millimeter calculus distal left ureter with mild left hydronephrosis
[2023-03-06] MEDS ORDERED: PROMETHAZINE INJ 25 MG/ML AMP ONE (18:10)
[2023-03-06] MEDS ORDERED: MORPHINE 2 MG/ML SYR ONE (18:13)
[2023-03-06] MEDS ORDERED: HYDROMORPHONE HCL 1 MG/ML INJ ONE (19:46)
--- NOTE | 2023-03-06 20:41 | EDPHYS ---
Physician Documentation [facility] Name: David Rivera Sr Age: 62 yrs Sex: Male : 1960 Arrival Date: 03/06/2023 Time: 16:15 Bed 20 Private MD: José Miguel Cordova E ED Physician Levon Donis HPI: 03/06 16:23 This 62 yrs old Male presents to ER via Unassigned with complaints of Vomiting, Flank rn Pain. 16:23 The patient complains of pain in the left mid back. The pain radiates to the abdomen. rn Onset: The symptoms/episode began/occurred yesterday. Modifying factors: The symptoms are alleviated by nothing. the symptoms are aggravated by nothing. Associated signs and symptoms: Pertinent positives: dysuria, hematuria, nausea, vomiting, Pertinent negatives: fever. Severity of pain: At its worst the pain was moderate in the emergency department the pain is unchanged. The patient has not experienced similar symptoms in the past. The patient has not recently seen a physician. Historical: - Allergies: 16:28 Iodinated Contrast Media - IV Dye; ss 16:28 Naproxen; ss 16:28 meloxicam; ss 16:28 PENICILLINS; ss 16:28 Sulfa (Sulfonamide Antibiotics); ss 16:28 "ALL BP MEDS"; ss - PMHx: 16:28 Hypertensive disorder; ss - Immunization history:: Client reports having NOT received the Covid vaccine. - Social history:: Smoking status: Patient denies any tobacco usage or history of. - Family history:: not pertinent. - Hospitalizations: : No recent hospitalization is reported. ROS: 16:23 Constitutional: Negative for fever, chills, and weight loss, Cardiovascular: Negative rn for chest pain, palpitations, and edema, Respiratory: Negative for shortness of breath, cough, wheezing, and pleuritic chest pain, Abdomen/GI: + left flank pain with nausea/vomiting Back: + left flank pain : Negative for injury MS/Extremity: Negative for injury and deformity, Neuro: Negative for headache, weakness, numbness, tingling, and seizure. Exam: 16:23 Constitutional: This is a well developed, well nourished patient who is awake, alert, rn + appears uncomfortable Head/Face: Normocephalic, atraumatic. Cardiovascular: Tachycardic, regular. No pulse deficits. Respiratory: No increased work of breathing, no retractions or nasal flaring. Abdomen/GI: soft, non focal tenderness Back: No spinal tenderness. No costovertebral tenderness. Full range of motion. Skin: Warm, dry MS/ Extremity: Pulses equal, no cyanosis. Neuro: Awake and alert, GCS 15 Vital Signs: 16:27 Pulse 129; Resp 26; Pulse Ox 98% on R/A; Weight 133.81 kg; Height 6 ft. 6 in. ; Pain ss 10/10; 16:29 BP 156 / 95; ss 17:00 BP 162 / 113; Pulse 86; Resp 20; Pulse Ox 99% on R/A; eh3 18:00 BP 146 / 87; Pulse 78; Resp 22; Pulse Ox 95% on R/A; eh3 19:50 BP 149 / 87; Pulse 93; Resp 17 S; Pulse Ox 96% on R/A; ha1 20:50 BP 164 / 77; Pulse 93; Resp 17 S; Pulse Ox 96% on R/A; ha1 16:27 Body Mass Index 34.09 (133.81 kg, 198.12 cm) ss 16:27 Pain Scale: Adult ss MDM: 16:17 Patient medically screened. rn 20:38 Differential diagnosis: nephrolithiasis, UTI. Data reviewed: vital signs, nurses notes, turntable engineer test result(s), radiologic studies, CT scan, and as a result, I will discharge patient. Counseling: I had a detailed discussion with the patient and/or guardian regarding: the historical points, exam findings, and any diagnostic results supporting the discharge/admit diagnosis, lab results, radiology results, the need for outpatient follow up, to return to the emergency department if symptoms worsen or persist or if there are any questions or concerns that arise at home. Response to treatment: the patient's symptoms have markedly improved after treatment, and as a result, I will discharge patient. 20:39 Special discussion: I discussed with the patient/guardian in detail that at this point rn there is no indication for admission to the hospital. It is understood, however, that if the symptoms persist or worsen the patient needs to return immediately for re-evaluation. ED course: Pt resting comfortably, feels much better, will dc home as distal 2mm calculus. Return precautions given and understood. . 03/06 16:19 Order name: CBC with Diff; Complete Time: 17: rn 03/06 16:19 Order name: CMP; Complete Time: 17: rn 03/06 16:19 Order name: Lipase; Complete Time: 17: rn 03/06 16:19 Order name: Urinalysis w/ reflexes; Complete Time: 17: rn 03/06 16:23 Order name: Protime (+inr); Complete Time: 17: rn 03/06 16:23 Order name: Ptt, Activated; Complete Time: 17: rn 03/06 17:02 Order name: Urine Culture EDMO 03/06 16:19 Order name: CT Stone Protocol; Complete Time: 17:52 rn 03/06 16:19 Order name: IV Saline Lock; Complete Time: 16: rn 03/06 16:19 Order name: Labs collected and sent; Complete Time: 16:31 rn Administered Medications: 16:40 Drug: NS 0.9% IV 1000 ml Route: IV; Rate: 1 bolus; Site: right antecubital; ss 16:42 Drug: Ondansetron IVP 4 mg Route: IVP; Site: right antecubital; ss 18:20 Follow up: Response: No adverse reaction eh3 16:42 Drug: morphine IVP or IV 4 mg Route: IVP; Infused Over: 4 mins; Site: right antecubital;ss 18:20 Follow up: Response: No adverse reaction eh3 16:45 Drug: Magnesium Sulfate IVPB 1 grams Route: IVPB; Infused Over: 1 hrs; Site: right ss antecubital; 16:48 Drug: Flomax PO 0.4 mg Route: PO; ss 18:20 Follow up: Response: No adverse reaction eh3 18:10 Drug: morphine IVP or IV 1 mg Route: IVP; Infused Over: 2 mins; Site: right antecubital;eh3 18:10 Drug: Promethazine IVP 12.5 mg Route: IVP; Site: right antecubital; eh3 19:53 Drug: HYDROmorphone IVP 1 mg Route: IVP; Site: right antecubital; ha1 20:20 Follow up: Response: No adverse reaction; Pain is decreased; RASS: Alert and Calm (0) ha1 20:50 Drug: Ciprofloxacin PO 500 mg Route: PO; ha1 21:03 Follow up: Response: No adverse reaction ha1 Disposition Summary: 03/06/23 20:40 Discharge Ordered Location: Home rn Problem: new rn Symptoms: have improved rn Condition: Stable rn Diagnosis - Calculus of ureter rn - UTI/ Urinary tract infection, site not specified rn Followup: rn - With: Private Physician - When: As needed - Reason: Recheck today's complaints, Re-evaluation by your physician Discharge Instructions: - Discharge Summary Sheet rn - Kidney Stones rn - Renal Colic rn - Urinary Tract Infection, Adult rn Forms: - Medication Reconciliation Form rn - Thank You Letter rn - Antibiotic manufacturing engineering intern - Prescription Opioid Use rn - [email or web address] rn Prescriptions: - acetaminophen-codeine 300-30 mg Oral tablet - take 1 tablet by ORAL route every 8 hours As needed; 12 tablet; Refills: 0, rn Product Selection Permitted - ondansetron 4 mg Oral Tablet,disintegrating - take 1 tablet by ORAL route every 8 hours As needed; 15 tablet; Refills: 0, rn Product Selection Permitted - tamsulosin 0.4 mg Oral capsule - take 1 capsule by ORAL route every 24 hours As needed Do not take if you are rn not passing a kidney stone, can cause low blood pressure; 10 capsule; Refills: 0, Product Selection Permitted - Cipro 500 mg Oral Tablet - take 1 tablet by ORAL route every 12 hours for 7 days; 14 tablet; Refills: 0, rn Product Selection Permitted Signatures: Dispatcher [employer] Levon Mejia MD MD rn Blanchard, Shelby, RN RN Cassidy Madera RN RN 3 Mariam Zhang RN RN 1
--- NOTE | 2023-03-06 20:41 | ER ---
Nurse's Notes [facility] Name: David Rivera Sr Age: 62 yrs Sex: Male : 1960 Arrival Date: 03/06/2023 Time: 16:15 Bed 20 Private MD: José Miguel Cordova E Diagnosis: Calculus of ureter;UTI/ Urinary tract infection, site not specified Presentation: 03/06 16:27 Chief complaint: Patient states: sudden onset of flank pain, N/V. Coronavirus screen: ss Client denies travel out of the [place] in the last 14 days. Ebola Screen: Patient denies exposure to infectious person. Patient denies travel to an Ebola-affected area in the 21 days before illness onset. Initial Sepsis Screen: Does the patient meet any 2 criteria? No. Patient's initial sepsis screen is negative. Does the patient have a suspected source of infection? No. Patient's initial sepsis screen is negative. Risk Assessment: Do you want to hurt yourself or someone else? Patient reports no desire to harm self or others. Onset of symptoms was March 06, 2023. 16:27 Method Of Arrival: Ambulatory ss 16:27 Acuity: KAITLYN 2 Triage Assessment: 19:20 General: Appears uncomfortable, Behavior is cooperative. GI:. GI: Abdomen is round ha1 non-distended, Reports pain in the lower pelvic that radiates to the back. Historical: - Allergies: 16:28 Iodinated Contrast Media - IV Dye; ss 16:28 Naproxen; ss 16:28 meloxicam; ss 16:28 PENICILLINS; ss 16:28 Sulfa (Sulfonamide Antibiotics); ss 16:28 "ALL BP MEDS"; ss - PMHx: 16:28 Hypertensive disorder; ss - Immunization history:: Client reports having NOT received the Covid vaccine. - Social history:: Smoking status: Patient denies any tobacco usage or history of. - Family history:: not pertinent. - Hospitalizations: : No recent hospitalization is reported. Screenin:30 [facility] ED Fall Risk Assessment (Adult) Score/Fall Risk Level 0 - 2 = Low Risk. Abuse eh3 screen: Denies threats or abuse. Denies injuries from another. Nutritional screening: No deficits noted. Tuberculosis screening: No symptoms or risk factors identified. Assessment: 16:30 General: Appears distressed, uncomfortable, Behavior is cooperative, anxious, restless. eh3 Pain: Complains of pain in left flank. Neuro: Level of Consciousness is awake, alert, obeys commands, Oriented to person, place, time, situation. Cardiovascular: Capillary refill < 3 seconds Patient's skin is warm and dry. Respiratory: Airway is patent Respiratory effort is even, unlabored, Respiratory pattern is regular, symmetrical. GI: Abdomen is round non-distended. Derm: Skin is pink, warm \\T\\ dry. Musculoskeletal: Circulation, motion, and sensation intact. 16:48 Reassessment: RASS score 0 at this time. PT reports pain decreased from 10/10 to 6/10. ss 17:30 Reassessment: Patient and/or family updated on plan of care and expected duration. Pain eh3 level reassessed. Patient is alert, oriented x 3, equal unlabored respirations, skin warm/dry/pink. 18:30 Reassessment: Patient and/or family updated on plan of care and expected duration. Pain eh3 level reassessed. Patient is alert, oriented x 3, equal unlabored respirations, skin warm/dry/pink. 19:50 General: Appears uncomfortable, Behavior is cooperative. Pain: Complains of pain in ha1 back and left mid back. Neuro: Level of Consciousness is awake, alert, obeys commands, Oriented to person, place, time, situation. Cardiovascular: Patient's skin is warm and dry. Respiratory: Respiratory effort is even, unlabored, Respiratory pattern is regular, symmetrical. GI: Abdomen is round non-distended. Derm: Skin is pink, warm \\T\\ dry. Musculoskeletal: Circulation, motion, and sensation intact. 20:50 Reassessment: Patient and/or family updated on plan of care and expected duration. Pain ha1 level reassessed. Patient is alert, oriented x 3, equal unlabored respirations, skin warm/dry/pink. pain 5/10 Patient states symptoms have improved. Vital Signs: 16:27 Pulse 129; Resp 26; Pulse Ox 98% on R/A; Weight 133.81 kg; Height 6 ft. 6 in. ; Pain ss 10/10; 16:29 BP 156 / 95; ss 17:00 BP 162 / 113; Pulse 86; Resp 20; Pulse Ox 99% on R/A; eh3 18:00 BP 146 / 87; Pulse 78; Resp 22; Pulse Ox 95% on R/A; eh3 19:50 BP 149 / 87; Pulse 93; Resp 17 S; Pulse Ox 96% on R/A; ha1 20:50 BP 164 / 77; Pulse 93; Resp 17 S; Pulse Ox 96% on R/A; ha1 16:27 Body Mass Index 34.09 (133.81 kg, 198.12 cm) ss 16:27 Pain Scale: Adult ss ED Course: 16:15 Patient arrived in ED. rg4 16:16 José Miguel Cordova MD is Private Physician. rg4 16:17 Levon Donis MD is Attending Physician. rn 16:28 Triage completed. ss 16:28 Arm band placed on left wrist. ss 16:30 Cassidy Madera, THEO is Primary Nurse. eh3 16:30 Patient has correct armband on for positive identification. Bed in low position. Call 3 light in reach. Pulse ox on. NIBP on. 16:31 Initial lab(s) drawn, by me, sent to lab. Inserted saline lock: 20 gauge in right em1 antecubital area, using aseptic technique. Blood collected. 16:46 Urinalysis w/ reflexes Sent. ss 17:30 CT Stone Protocol In Process Unspecified. EDMS 19:00 Report given to THEO Becerra. eh3 21:13 No provider procedures requiring assistance completed. IV discontinued, intact, ha1 bleeding controlled, No redness/swelling at site. Pressure dressing applied. Administered Medications: 16:40 Drug: NS 0.9% IV 1000 ml Route: IV; Rate: 1 bolus; Site: right antecubital; 16:42 Drug: Ondansetron IVP 4 mg Route: IVP; Site: right antecubital; 18:20 Follow up: Response: No adverse reaction eh3 16:42 Drug: morphine IVP or IV 4 mg Route: IVP; Infused Over: 4 mins; Site: right antecubital;ss 18:20 Follow up: Response: No adverse reaction eh3 16:45 Drug: Magnesium Sulfate IVPB 1 grams Route: IVPB; Infused Over: 1 hrs; Site: right ss antecubital; 16:48 Drug: Flomax PO 0.4 mg Route: PO; ss 18:20 Follow up: Response: No adverse reaction eh3 18:10 Drug: morphine IVP or IV 1 mg Route: IVP; Infused Over: 2 mins; Site: right antecubital;eh3 18:10 Drug: Promethazine IVP 12.5 mg Route: IVP; Site: right antecubital; 3 19:53 Drug: HYDROmorphone IVP 1 mg Route: IVP; Site: right antecubital; ha1 20:20 Follow up: Response: No adverse reaction; Pain is decreased; RASS: Alert and Calm (0) ha1 20:50 Drug: Ciprofloxacin PO 500 mg Route: PO; ha1 21:03 Follow up: Response: No adverse reaction ha1 Medication: 21:13 VIS not applicable for this client. ha1 Outcome: 20:40 Discharge ordered by . rn 21:13 Discharged to home ambulatory. ha1 21:13 Condition: stable 21:13 Discharge instructions given to patient, Instructed on discharge instructions, follow up and referral plans. medication usage, Demonstrated understanding of instructions, follow-up care, medications, Prescriptions given X 3. 21:15 Patient left the ED. ha1 Signatures: Dispatcher [employer] EDMS Levon Donis MD MD rn Martinez, Eric em1 Darlene Hatch RN RN ss Garcia, Rubi 4 Cassidy Madera RN RN 3 Mariam Zhang RN RN ha1 Corrections: (The following items were deleted from the chart) 21:13 21:11 Response: No adverse reaction; Pain is decreased; RASS: Alert and Calm (0) ha1 ha1
[2023-03-06] MEDS ORDERED: CIPROFLOXACIN HCL 500 MG TAB ONE (20:53)
[2023-03-06 21:26] VITALS: O2SAT 96
[2023-03-06 21:28] VITALS: BP 164/77
== END 2023-03-06 21:15 | disposition home or self-care (01) ==
LOC: ER 16:15
DX: N39.0 Urinary tract infection, site not specified (principal); N20.1 Calculus of ureter; I10 Essential (primary) hypertension; Z88.0 Allergy status to penicillin; Z88.2 Allergy status to sulfonamides; Z88.5 Allergy status to narcotic agent; Z88.8 Allergy status to other drugs, medicaments and biological substances; Z91.041 Radiographic dye allergy status
CPT/HCPCS: 87088; 85025; 81001; 87086; 36415; 85610; 85730; 83690; 80053; 76377; 74176; J2550; J3475; J2270; J1170; J2405; J7030

== ENCOUNTER 2024-02-13 14:06 | Emergency (ER) | payer OTHER ==
--- OUTSIDE RECORDS SUMMARY | 2024-02-13 14:11 | XMS REPORT | Continuity of Care Document ---
Author Name Unknown Address [address] [facility] [place] [address] [facility] Address [address] [facility] [facility] [place] [address] Care Team Providers Care Uniform Maker Name Role Phone CordovaJosé Miguel Dimitris Primary Care Physician [phone] DOMINIQUE ALLEN Attending Clinician Unavailable KIMBERLEY WEINBERG Attending Clinician UnavailKIMBERLEY Anderson Attending Clinician Unavailcesia chacko , [facility] Sleep Lab Bed Attending Clinician Unavail Kimberley Luz MD Attending Clinician [phone] Doctor Unassigned, Isola Attending Clinician U AMELIE Shipman Attending Clinician Unavailable RINA PETE Attending Clinician Unavailable SYLVIA MADERA Attending Clinician Unavailable Sylvia Madera MD Attending Clinician [phone] [facility] Lab Main Attending Clinician UnavailThu De La Cruz Attending Clinician [phone] THU FERNANDEZ Attending Clinician Unavailable DOMINIQUE ALLEN M.D. Attending Clinician UnavailYANET Cardona D.O. Attending Clinician Unavailcarlos rain Payers Payer Name Policy Type Policy Number Effective Date Expirati on Date Source [facility] WELLMED [id number] 2022 00:00:00 WELL[employer] MEDICARE ADVANTAGE [id number] 2022 00:00:00 [employer] MEDICARE ERS [id number] 2019 00:00:00 Problems Condition Name Condition Details Condition Category Status Onset Date Resolution Date Last Treatment Date Treating Clinician Comments Source Contusion of right knee and lower leg Contusion of right knee and lower leg Disease Active 01-17 00:00: 00 [facility] Acute pain of right knee Acute pain of right knee Disease Active 09-23 00:00: 00 [facility] Internal derangemen t of right knee Internal derangemen t of right knee Disease Active 09-23 00:00: [facility] Effusion of knee joint right Effusion of knee joint right Disease Active 09-23 00:00: [facility] Essential hypertensi on Essential hypertensi on Disease Active 03-11 00:00: 00 [facility] ACC/AHA stage A heart failure ACC/AHA stage A heart failure Disease Active 03-11 00:00: 00 [facility] Syncope, unspecifie d syncope type Syncope, unspecifie d syncope type Disease Active 03-11 00:00: 00 [facility] ACC/AHA stage A heart failure ACC/AHA stage A heart failure Disease Active 03-11 00:00: 00 [facility] Obesity Obesity Disease Active 03-11 00:00: 00 [facility] Left shoulder pain Left shoulder pain [facility] Superior glenoid labrum lesion of left shoulder, initial encounter Superior glenoid labrum lesion of left shoulder, initial encounter Problem Active [facility] Carpal tunnel syndrome of left wrist Carpal tunnel syndrome of left wrist Problem Active [facility] Cubital tunnel syndrome on left Cubital tunnel syndrome on left Problem Active [facility] Plantar fasciitis, bilateral Plantar fasciitis, bilateral Problem Active [facility] Neuropathi c pain, arm Neuropathi c pain, arm Problem Active [facility] History of cervical spinal surgery History of cervical spinal surgery Problem Active [facility] Stenosis of cervical spine Stenosis of cervical spine Problem Active [facility] Tarsal tunnel syndrome of left side Tarsal tunnel syndrome of left side Problem Active [facility] Allergies, Adverse Reactions, Alerts Allergy Name Allergy Type Status Severity Reaction(s) Onset Date Inactive Date Treating Clinician Comments Source Cephalex in Allergy to substanc e Active 09-23 00:00: [address] [facility] Ciproflo xacin Allergy to substanc e Active 09-23 00:00: 00 nauseanau sea [facility] Clindamy jeovanny Allergy to substanc e Active 09-23 00:00: 00 Migraine RODRÍGUEZ.Migrai ne RODRÍGUEZ. [facility] Gabapent in Allergy to substanc e Active 09-23 00:00: 00 Feet swelling. Feet swelling. [facility] Hydrocod one Allergy to substanc e Active 09-23 00:00: 00 GI upsetGI upset [facility] Irbesart an Allergy to substanc e Active 09-23 00:00: 00 Joint, kidney pain.Join t, kidney pain. [facility] Testoste elie Allergy to substanc e Active 09-23 00:00: 00 coughing. coughing. [facility] Valsarta n Allergy to substanc e Active 09-23 00:00: 00 joint pain.join t pain. [facility] Zolpidem Allergy to substanc e Active 09-23 00:00: 00 Heart palpitati ons, throat swelling, dysuria, diarrheaH eart palpitati ons, throat swelling, dysuria, diarrhea [facility] Amlodipi ne Allergy to substanc e Active 2021-09 00:00: 00 Other reaction( s): anaphylax is [facility] Lisinopr il Allergy to substanc e Active 2021-09 00:00: 00 Other reaction( s): shortness of breath [facility] NEBIVOLO L DRUG INGREDI Active Other-Cmnt 2018-09 00:00: 00 [facility] l Propensi ty to adverse reaction s Active Other - See comments 2018-09 00:00: [address] [facility] Nebivolo l Allergy to substanc e Active 2018-09 00:00: 00 Other reaction( s): Other - See commentsS evere coughing, to the point of passing out.Sever e coughing, to the point of passing out. [facility] MELOXICA M DRUG INGREDI Active Other-Cmnt 2017-09 00:00: [address] [facility] Meloxica m Propensi ty to adverse reaction s Active 2017-09 00:00: 00 Other reaction( s): Other - See commentsC auses bleeding in toes [facility] MUPIROCI N DRUG INGREDI Active Anaphylaxis 03-09 00:00: 00 [facility] LORATADI NE DRUG INGREDI Active Other-Cmnt 03-09 00:00: [address] [facility] IODINE DRUG INGREDI Active SOB 03-09 00:00: 00 [facility] IODINE AND IODIDE CONTAINI NG PRODUCTS Drug Class Active SOB 03-09 00:00: 00 [facility] PENICILL INS Drug Class Active ITCHING 03-09 00:00: 00 [facility] SULFA (SULFONA MIDE ANTIBIOT ICS) Drug Class Active Unknown-Cmnt 03-09 00:00: 00 [facility] Penicill ins Propensi ty to adverse reaction s Active Itching 03-09 00:00: 00 [facility] Sulfa (Sulfona mide Antibiot ics) Propensi ty to adverse reaction s Active Unknown - See comments 03-09 00:00: 00 [facility] Iodine Propensi ty to adverse reaction s Active Shortness of Breath 03-09 00:00: 00 [facility] Iodine And Iodide Containi ng Products Propensi ty to adverse reaction s Active Shortness of Breath 03-09 00:00: [address] [facility] Penicill ins Propensi ty to adverse reaction s Active Itching 03-09 00:00: 00 [facility] Sulfa (Sulfona mide Antibiot ics) Propensi ty to adverse reaction s Active Unknown - See comments 03-09 00:00: 00 [facility] Loratadi ne Propensi ty to adverse reaction s Active 03-09 00:00: 00 Other reaction( s): Other - See commentsU nable to urinate. [facility] Mupiroci n Propensi ty to adverse reaction s Active Anaphylaxis 03-09 00:00: 00 [facility] Metronid azole Allergy to substanc e Active 11 00:00: 00 itchingit con [facility] Sulfamet hoxazole -Trimeth oprim Allergy to substanc e Active 3-11 00:00: 00 [facility] Iodinate d Contrast Media Allergy to substanc e Active 10-07 00:00: 00 Other reaction( s): Anaphylax is [facility] Iodine Allergy to substanc e Active Shortness of breath 10-07 00:00: 00 Other reaction( s): Hives, Unknown [facility] Penicill ins Allergy to substanc e Active Itching 10-07 00:00: 00 Other reaction( s): Hives, Unknown [facility] Sulfa Antibiot ics Allergy to substanc e Active 10-07 00:00: 00 Other reaction( s): Anaphylax is, Unknown [facility] Trimetho prim Allergy to substanc e Active 10-07 00:00: 00 Other reaction( s): Anaphylax is [facility] Social History Social Habit Start Date Stop Date Quantity Comments Source History of tobacco use Passive smoker [facility] Alcohol intake 2023-04-06 00:00:00 2023-04-06 00:00:00 Lifetime non-drinker (finding) [facility] Exposure to SARS-CoV-2 (event) 2022-12-24 00:00:00 2023-01-03 22:39:00 Not sure [facility] Tobacco use and exposure 2022-09-23 00:00:00 2022-09-23 00:00:00 Smokeless tobacco non-user [facility] Alcohol Comment 2016-03-09 00:00:00 2016-03-09 00:00:00 once a month [facility] Sex Ass[birth year] At 1960 00:00:00 1960 00:00:00 [facility] Smoking Status Start Date Stop Date Source Never smoked tobacco [facility] Medications Ordered Medication Name Filled Medication Name Start Date Stop Date Current Medication? Ordering Clinician Indication Dosage Frequency Signature (SIG) Comments Components Source Azelastine- Fluticasone 137-50 MCG/ACT suspension 09-23 13:19: 00 Yes Q12H every 12 (twelve) hours. [facility] benzonatate (Tessalon) 200 MG capsule 09-23 13:19: 00 Yes 200mg Take 200 mg by mouth. [facility] Diclofenac Sodium (Voltaren) 1 % external gel 09-23 00:00: 00 10-24 05:59 :00 No [id number] 3D Apply topically 3 (three) times a day if needed (pain). [facility] methylPREDN ISolone (Medrol Dospak) 4 MG tablets 09-23 00:00: 00 09-24 05:59 :00 No [id number] 4mg Take 1 tablet (4 mg total) by mouth 1 (one) time for 1 dose. Use as directed by package instructio ns [facility] tiZANidine (Zanaflex) 4 MG tablet 09-22 00:00: 00 Yes [facility] bromphenira mine-pseudo ephedrine-D M 30-2-10 MG/5ML syrup 2021-09 00:00: 00 Yes TAKE 10 ML(S) BY MOUTH EVERY 4 HOURS NEEDED FOR 5 DAYS. [facility] albuterol 108 (90 Base) MCG/ACT inhaler 2021-09 00:00: 00 Yes INHALE TWO (2) PUFF(S) BY MOUTH EVERY 6 HOURS NEEDED. [facility] clomiPHENE (Clomid) 50 MG tablet 2021-09 00:00: 00 Yes 25mg QD Take 25 mg by mouth 1 (one) time each day. [facility] ciprofloxac in (Cipro) 500 MG tablet 2021-09 1- 00:00: 00 Yes [facility] ALPRAZolam (Xanax) 0.5 MG tablet 2021-09 00:00: 00 Yes 1{tbl} 1 tablet. [facility] budesonide- formoterol (Symbicort) 160-4.5 MCG/ACT inhaler 2020-09 0-05 00:00: 00 Yes Q12H every 12 (twelve) hours. [facility] Diclofenac Sodium 1 % GEL Diclofenac Sodium 1 % GEL 02-05 00:00: 00 Yes DOMINIQUE ALLEN M.D. QD APPLY TO LOWER EXTREMITIE S, 4 GM OF GEL TO AFFECTED AREA 4 TIMES DAILY. DO NOT APPLY MORE THAN 16 GM DAILY TO ANY ONE [facility]FFECTED [facility]INT. [facility] Oral Tablet Naproxen 500 MG Oral Tablet 02-05 00:00: 00 Yes DOMINIQUE ALLEN M.D. Q0.3333D TAKE 1 TABLET [address] Keron torres Pennsaid 2 % SOLN Pennsaid 2 % SOLN 02-05 00:00: 00 Yes DOMINIQUE ALLEN M.D. Apply two pumps (40mg) topically to each affected area BID CT Keron melissa nebivolol (BYSTOLIC) 10 mg tablet 2018-09 15:09: 53 Yes [id number] 10mg Take 10 mg by mouth daily. [facility] budesonide- formoterol (SYMBICORT) 160-4.5 mcg/actuati on inhaler 2018-09 15:09: 53 Yes [id number] 2{puff} Inhale 2 Puffs 2 (two) times daily. [facility] clomiPHENE (SEROPHENE) 50 mg tablet 2018-09 15:09: 53 Yes 50mg Take 50 mg by mouth daily. Indication s: 1/[address] [facility] methylPREDN ISolone (MEDROL DOSE-CAROLYN) 4 mg tablets 2018-09 15:09: 53 Yes [id number] 1{packa ge} Take 1 Package by mouth SEE-INSTRU CTIONS. follow package directions [facility] benzonatate (TESSALON) 200 mg capsule 2018-09 15:09: 53 Yes [id number] 200mg Take 200 mg by mouth 3 (three) times daily as needed for Cough. [facility] clomiPHENE (SEROPHENE) 50 mg tablet 2018-09 09:09: 53 Yes 50mg Take 50 mg by mouth daily. Indication s: 1/[address] [facility] methylPREDN ISolone (MEDROL DOSE-CAROLYN) 4 mg tablets 2018-09 09:09: 53 Yes [id number] 1{packa ge} Take 1 Package by mouth SEE-INSTRU CTIONS. follow package directions [facility] benzonatate (TESSALON) 200 mg capsule 2018-09 09:09: 53 Yes [id number] 200mg Take 200 mg by mouth 3 (three) times daily as needed for Cough. [facility] nebivolol (BYSTOLIC) 10 mg tablet 2018-09 09:09: 53 Yes [id number] 10mg Take 10 mg by mouth daily. [facility] budesonide- formoterol (SYMBICORT) 160-4.5 mcg/actuati on inhaler 2018-09 09:09: 53 Yes [id number] 2{puff} Inhale 2 Puffs 2 (two) times daily. [facility] clomiPHENE 50 mg tablet 2018-09 00:00: 00 Yes [id number] 50mg Take 1 tablet by mouth SEE-INSTRU CTIONS. Take 1/[address] [facility] naproxen (Naprosyn) 500 MG tablet 04-02 00:00: 00 Yes TAKE ONE TABLET BY MOUTH TWICE A DAY WITH FOOD OR MILK [facility] Vitamin D (Ergocalcif mahamed) 1.25 MG (48402 [facility]) Oral Capsule Vitamin D (Ergocalcif mahamed) 1.25 MG (20137 [facility]) Oral Capsule 04-02 00:00: 00 Yes DOMINIQUE ALLEN M.D. TAKE 1 CAPSULE WEEKLY. [facility] Diclofenac Sodium 1 % GEL Diclofenac Sodium 1 % GEL 04-02 00:00: 00 Yes DOMINIQUE ALLEN M.D. QD APPLY TO UPPER EXTREMITIE S, 2 GM OF GEL TO AFFECTED AREA 4 TIMES DAILY. DO NOT APPLY MORE THAN 8 GM DAILY TO ANY ONE AFFECTED JOINT. [facility] Lyrica 75 MG Oral Capsule Lyrica 75 MG Oral Capsule 09-26 00:00: 00 Yes DOMINIQUE ALLEN M.D. Q0.5D TAKE 1 CAPSULE TWICE DAILY. [facility] Acetaminoph en-Codeine #3 300-30 MG Oral Tablet Acetaminoph en-Codeine #3 300-30 MG Oral Tablet 09-26 00:00: 00 Yes DOMINIQUE ALLEN M.D. TAKE 1 TABLET EVERY 4 TO 6 HOURS NEEDED FOR PAIN. [facility] Vital Signs Vital Name Observation Time Observation Value Comments S ource Body height 2022-09-23 19:06:00 194.3 cm [facility] Body weight 2022-09-23 19:06:00 134.537 kg [facility] BMI 2022-09-23 19:06:00 35.63 [facility] pressure 2020-03-30 21:20:00 136 mm[Hg] [facility] Diastolic blood pressure 2020-03-30 21:20:00 80 mm[Hg] [facility] Heart rate 2020-03-30 21:20:00 71 /min [facility] Respiratory rate 2020-03-30 21:20:00 19 /min [facility] Body weight 2020-03-30 21:20:00 138.347 kg [facility] BMI 2020-03-30 21:20:00 35.25 kg/m2 [facility] Body height 2020-03-30 21:20:00 198.1 cm [facility] Body temperature 2020-03-30 13:53:00 36.83 Justine [facility] Body height 2020-03-30 13:53:00 172.7 cm [facility] Oxygen saturation in Arterial blood by Pulse oximetry 2020-03-30 13:53:00 98 /min [facility] Systolic blood pressure 2020-02-24 13:16:00 139 mm[Hg] [facility] Diastolic blood pressure 2020-02-24 13:16:00 82 mm[Hg] [facility] Heart rate 2020-02-24 13:16:00 80 /min [facility] Body temperature 2020-02-24 13:16:00 36.83 Justine [facility] Respiratory rate 2020-02-24 13:16:00 16 /min [facility] Body height 2020-02-24 13:16:00 190.5 cm [facility] Body weight 2020-02-24 13:16:00 137.168 kg [facility] BMI 2020-02-24 13:16:00 37.80 kg/m2 [facility] Oxygen saturation in Arterial blood by Pulse oximetry 2020-02-24 13:16:00 98 /min [facility] Procedures Procedure Date / Time Performed Performing Clinician Source EXTERNAL PROVIDER RECORDS 2022-12-29 05:01:00 Doctor Unassigned, Isola [facility] SLEEP STUDY DATA REPORT 2022-07-06 05:01:00 Doct or Unassigned, Isola [facility] POCT URINALYSIS AUTO 2020-03-30 21:22:00 Lilliana Madera [facility] POCT URINALYSIS AUTO 2020-02-24 13:20:00 Lilliana Madera [facility] PATIENT QUESTIONNAIRE 2020-02-24 05:01:00 Doctor Unassigned, Isola [facility] [U] XRAY FOOT MIN 3 VWS LEFT [id number] 2019-11-04 00:00:00 [facility] Encounters Start Date/Time End Date/Time Encounter Type Admission Type Attending [facility] Care Department Encounter ID Source 2023-04-06 16:02:14 Outpatient [facility] [id number] [facility] 2023-01-27 14:24:20 Outpatient [facility] [id number] [facility] 2023-01-17 17:17:32 Outpatient [facility] [id number] [facility] 2023-01-11 14:05:56 Outpatient [facility] ER [id number] [facility] 2022-11-18 13:16:36 Outpatient [facility] ER [id number] [facility] 2022-11-03 10:59:01 Outpatient [facility] [id number] [facility] 2022-10-31 09:16:50 Outpatient [facility] [id number] [facility] 2022-09-23 12:33:28 Outpatient [facility] [id number] [facility] 2022-09-16 14:04:19 Outpatient [facility] [id number] [facility] 2022-09-15 12:11:27 Outpatient [facility] [id number] [facility] 2023-06-29 15:30:00 2023-06-29 15:30:00 Outpatient DOMINIQUE ALLEN [facility] [id number] [facility] 2023-04-06 15:00:00 2023-04-06 15:50:35 Office Visit TiffanyFany mendozaan [facility] 1 1..840.114 [id number] [id number] [facility] 2023-03-23 14:15:00 2023-03-23 14:15:00 Outpatient DOMINIQUE ALLEN [facility] [id number] [facility] 2023-03-15 20:00:00 2023-03-15 20:00:00 Outpatient KIMBERLEY THOMAS, STRANEL [facility] [id number] [facility] 2023-01-17 15:30:00 2023-01-17 16:40:09 Outpatient TIFFANYFANY MENDOZAAN [facility] [id number] [facility] 2023-01-03 20:00:00 2023-01-03 22:30:00 Meat Supervisor Visit 1, [facility] Sleep Lab Bed Kimberley Weinberg [facility] 1..840.114 350.1.13.10 4.2.7.2.[id number] [facility] 2023-01-03 20:00:00 2023-01-03 20:00:00 Outpatient R KIMBERLEY WEINBERG, STRANEL [facility] [id number] [facility] 2022-12-29 15:15:00 2022-12-29 15:15:00 Outpatient DOMINIQUE ALLEN [facility] [id number] [facility] 2022-12-29 00:00:00 2022-12-29 00:00:00 Orders Only Doctor Unassigned, Isola [facility] 1..840.114 350.1.13.10 4.2.7.2.[id number] [facility] 2022-12-15 13:00:00 2022-12-15 13:00:00 Outpatient TIFFANYDOMINIQUE Pineda [facility] [id number] [facility] 2022-11-03 09:15:00 2022-11-03 11:00:00 Office Visit Dominique Allen [facility] 1 1.2.840.114 350.1.13.58 9.2.7.2.686 [id number] [facility] 2022-10-31 10:00:00 2022-10-31 10:00:00 Outpatient JENIFER DAMONJAMILADimitris [facility] [id number] [facility] 2022-09-23 00:00:00 2022-09-23 14:18:28 Outpatient [facility] [id number] [facility] 2022-09-23 13:30:00 2022-09-23 14:04:00 Office Visit RINA PETE [facility] 1 [id number] 350.1.13.58 [id number] [id number] [facility] 2022-07-06 20:00:00 2022-07-06 22:30:00 Meat Supervisor Visit 1, [facility] Sleep Lab Bed Kimberley Weinberg [facility] 1.2.840.114 350.1.13.10 4.2.7.2.[id number] [facility] 2022-07-06 20:00:00 2022-07-06 20:00:00 Outpatient R KIMBERLEY WEINBERG [facility] [id number] [facility] 2022-07-06 00:00:00 2022-07-06 00:00:00 Orders Only Doctor Unassigned, Isola [facility] 1.2.840.114 350.1.13.10 4.2.7.2.[id number] [facility] 2022-07-04 11:00:00 2022-07-04 11:00:00 Outpatient R [facility] [id number] [facility] 2022-05-18 20:00:00 2022-05-18 20:00:00 Outpatient R KIMBERLEY WEINBERG, KIMBERLEY [facility] [id number] [facility] 2022-05-17 13:00:00 2022-05-17 13:00:00 Outpatient R [facility] [id number] [facility] 2020-07-20 15:15:00 2020-07-20 15:15:00 Outpatient R CASSY [facility] [id number] [facility] 2020-07-02 13:30:00 2020-07-02 13:30:00 Outpatient R CASSY [facility] [id number] [facility] 2020-03-30 15:36:03 2020-03-31 08:19:05 Office Visit Cassy [facility] 1.2.840.114 350.1.13.10 4.2.7.2.[id number] [facility] 2020-03-30 09:00:00 2020-03-30 09:00:00 Outpatient R CASSY [facility] [id number] [facility] 2020-03-27 13:56:24 2020-03-27 14:11:24 Meat Supervisor Visit Pob, Adc Lab Main Cassy [facility] 1.2.840.114 350.1.13.10 4.2.7.2.[id number] [facility] 2020-03-27 14:00:00 2020-03-27 14:00:00 Outpatient R CASSY [facility] [id number] [facility] 2020-02-27 00:00:00 2020-02-27 00:00:00 Telephone Cassy [facility] 1.2.840.114 350.1.13.10 4.2.7.2.[id number] [facility] 2020-02-24 09:06:14 2020-02-24 09:21:14 Meat Supervisor Visit Pob, Adc Lab Main Cassy [facility] 1.2.840.114 350.1.13.10 4.2.7.2.[id number] [facility] 2020-02-24 07:54:16 2020-02-24 08:49:50 Office Visit Cassy [facility] 1.2.840.114 350.1.13.10 4.2.7.2.[id number] [facility] 2020-02-24 08:00:00 2020-02-24 08:00:00 Outpatient R CASSY [facility] [id number] [facility] 2020-02-24 00:00:00 2020-02-24 00:00:00 Orders Only Doctor Unassigned, Isola [facility] 1.2840.114 350.1.13.10 4.2.7.2.[id number] [facility] 2020-02-20 13:34:14 2020-02-20 13:49:14 Meat Supervisor Visit Pob, Adc Lab Main Thu [facility] 1.2.840.114 350.1.13.10 4.2.7.2.[id number] [facility] 2020-02-20 13:15:00 2020-02-20 13:15:00 Outpatient R THU FERNANDEZ [facility] [id number] [facility] 2020-02-06 10:30:00 2020-02-06 10:30:00 AppointDOMINIQUE Arellano M.D. DOMINIQUE ALLEN M.D. [facility] [id number] [facility] 2020-01-30 15:30:00 2020-01-30 15:30:00 Outpatient R SYLVIA MADERA [facility] [id number] [facility] 2020-01-28 09:00:00 2020-01-28 09:00:00 Outpatient R THU FERNANDEZ [facility] [id number] [facility] 2019-11-05 10:00:00 2019-11-05 10:00:00 Appointmen t; DOMINIQUE ALLEN M.D. MEEKS, EVAN, M.D. [facility] [id number] [facility] 2019-09-19 13:30:00 2019-09-19 13:30:00 Appointmen t; DOMINIQUE ALLEN M.D. MEEKS, EVAN, M.D. [facility] [id number] [facility] 2019-05-16 10:15:00 2019-05-16 10:15:00 Appointmen t; YANET SYED D.O. CHEN, JASON, D.O. [facility] [id number] [facility] 2019-04-25 10:30:00 2019-04-25 10:30:00 Appointmen t; DOMINIQUE ALLEN M.D. MEEKS, EVAN, M.D. [facility] [id number] [facility] 2019-04-02 15:15:00 2019-04-02 15:15:00 Appointmen t; DOMINIQUE ALLEN M.D. MEEKS, EVAN, M.D. [facility] [id number] [facility] 2018-12-25 10:00:00 2018-12-25 10:00:00 Appointmen t; DOMINIQUE ALLEN M.D. MEEKS, EVAN, M.D. [facility] [id number] [facility] 2018-10-30 10:15:00 2018-10-30 10:15:00 Appointmen t; DOMINIQUE ALLEN M.D. MEEKS, EVAN, M.D. [facility] [id number] CT Physici ans 2018-07-31 10:30:00 2018-07-31 10:30:00 Appointmen t; DOMINIQUE ALLEN M.D. MEEKS, EVAN, M.D. [facility] [id number] CT Physici ans 2018-05-31 11:00:00 2018-05-31 11:00:00 Appointmen t; DOMINIQUE ALLEN M.D. MEEKS, EVAN, M.D. [facility]TP [id number] CT Physici ans 2018-03-20 10:15:00 2018-03-20 10:15:00 Appointmen t; DOMINIQUE ALLEN M.D. MEEKS, EVAN, M.D. [facility] UTP [id number] CT Physici ans 2017-12-19 10:15:00 2017-12-19 10:15:00 Appointmen t; DOMINIQUE ALLEN M.D. MEEKS, EVAN, M.D. [facility] UTP [id number] CT Physici ans 2017-11-07 10:45:00 2017-11-07 10:45:00 Appointmen t; DOMINIQUE ALLEN M.D. MEEKS, EVAN, M.D. [facility] UTP [id number] CT Physici ans Results Test Description Test Time Test Comments Results Result Co mments Source [facility] URINALYSIS, [id number] 21:24:00 * Test Item Value Reference Range Interpretation Comme nts POCT U SP GRAV (test code = 3255) 1.015 mg/dl 1.005-1.025 POCT PH U (test code = 3254) 7.5 mg/dl 5-8 POCT U LEUK EST (test code = 3263) negative Negative - Negative POCT U NIT (test code = 3262) negative Negative - Negati ve POCT U PROT (test code = 3259) negative Negative - Negative POCT U GLU (test code = 3256) negative Negative - Negati ve POCT U KETONE (test code = 3258) negative Negative - Negative POCT U UROBILI (test code = 3260) 0.2 mg/dl 0.2-1 POCT U BILI (test code = 3261) negative Negative - Negative POCT U BLD (test code = 3257) negative Negative - Negati ve POCT U COLOR (test code = 3266) yellow POCT U APPEAR (test code = 3267) [facility] [id number] 21:24:00 * Test Item Value Reference Range Interpretation Comme nts POCT U SP GRAV (test code = 3255) 1.015 mg/dl 1.005-1.025 POCT PH U (test code = 3254) 7.5 mg/dl 5-8 POCT U LEUK EST (test code = 3263) negative Negative - Negative POCT U NIT (test code = 3262) negative Negative - Negati ve POCT U PROT (test code = 3259) negative Negative - Negative POCT U GLU (test code = 3256) negative Negative - Negati ve POCT U KETONE (test code = 3258) negative Negative - Negative POCT U UROBILI (test code = 3260) 0.2 mg/dl 0.2-1 POCT U BILI (test code = 3261) negative Negative - Negative POCT U BLD (test code = 3257) negative Negative - Negati ve POCT U COLOR (test code = 3266) yellow POCT U APPEAR (test code = 3267) clear [facility] URINALYSIS, [id number] 13:21:00 * Test Item Value Reference Range Interpretation Comme nts POCT U SP GRAV (test code = 3255) 1.030 mg/dl 1.005-1.025 A POCT PH U (test code = 3254) 5.5 mg/dl 5-8 POCT U LEUK EST (test code = 3263) Negative Negative - Negative POCT U NIT (test code = 3262) Negative Negative - Negati ve POCT U PROT (test code = 3259) Negative Negative - Negative POCT U GLU (test code = 3256) Negative Negative - Negati ve POCT U KETONE (test code = 3258) Negative Negative - Negative POCT U UROBILI (test code = 3260) 0.2 mg/dl 0.2-1 POCT U BILI (test code = 3261) Negative Negative - Negative POCT U BLD (test code = 3257) Negative Negative - Negati ve POCT U COLOR (test code = 3266) yellow POCT U APPEAR (test code = 3267) clear Lab Interpretation (test cod e = [id number]) Abnormal [facility] URINALYSIS, [id number] 13:21:00 * Test Item Value Reference Range Interpretation Comme nts POCT U SP GRAV (test code = 3255) 1.030 mg/dl 1.005-1.025 A POCT PH U (test code = 3254) 5.5 mg/dl 5-8 POCT U LEUK EST (test code = 3263) Negative Negative - Negative POCT U NIT (test code = 3262) Negative Negative - Negati ve POCT U PROT (test code = 3259) Negative Negative - Negative POCT U GLU (test code = 3256) Negative Negative - Negati ve POCT U KETONE (test code = 3258) Negative Negative - Negative POCT U UROBILI (test code = 3260) 0.2 mg/dl 0.2-1 POCT U BILI (test code = 3261) Negative Negative - Negative POCT U BLD (test code = 3257) Negative Negative - Negati ve POCT U COLOR (test code = 3266) yellow POCT U APPEAR (test code = 3267) clear Lab Interpretation (test cod e = [id number]) Abnormal [facility]
[2024-02-13] MEDS ORDERED: DIPHENHYDRAMINE 50 MG/ML VIAL ONE (14:18)
[2024-02-13] MEDS ORDERED: ONDANSETRON 4 MG/2 ML VIAL ONE (14:18)
[2024-02-13] MEDS ORDERED: NA CHLORIDE 0.9% 1,000 ML ONE (14:18)
[2024-02-13] MEDS ORDERED: FAMOTIDINE 20 MG/2 ML VIAL IV ONE (14:18)
[2024-02-13] MEDS ORDERED: METHYLPREDNISOLONE 125 MG INJ ONE (14:18)
--- NOTE | 2024-02-13 15:23 | EDPHYS ---
Physician Documentation [facility] Name: David Rivera Sr Age: 63 yrs Sex: Male : 1960 Arrival Date: 02/13/2024 Time: 14:06 Bed Treatment Private MD: ED Physician Esequiel Richardson HPI: 02/12 15:20 This 63 yrs old Male presents to ER via Ambulatory with complaints of Allergic kb Reaction, Bee Sting. 15:20 Pt is a 63 year old male who presents for allergic reaction to wasp sting that occurred kb yesterday. States he is highly allergic to wasps. States he took benadryl last night and this morning but swelling, redness and pain hasn't improved. Also reports nausea and slight shortness of breath. . Historical: - Allergies: 14:20 Iodinated Contrast Media - IV Dye; as6 14:20 Naproxen; as6 14:20 Sulfa (Sulfonamide Antibiotics); as6 14:20 PENICILLINS; as6 14:20 meloxicam; as6 - PMHx: 14:20 Hypertensive disorder; Chronic obstructive lung disease; as6 - PSHx: 14:20 arm; neck; as6 - Immunization history:: Adult Immunizations up to date. - Infectious Disease History:: Denies. - Social history:: Smoking status: Patient denies any tobacco usage or history of. ROS: 15:18 Constitutional: As per HPI kb Exam: 15:18 Constitutional: This is a well developed, well nourished patient who is awake, alert, kb and in no acute distress. Head/Face: Normocephalic, atraumatic. ENT: Moist Mucous membranes Cardiovascular: Regular rate Respiratory: Respirations even and unlabored. No increased work of breathing. Talking in full sentences Abdomen/GI: Soft, non-tender. No distention MS/ Extremity: Pulses equal, no cyanosis. Neurovascular intact. Full, normal range of motion. Neuro: Awake and alert, GCS 15, oriented to person, place, time, and situation. Moves all extremities. Normal gait. 15:18 Skin: moderate erythema and swelling to right side of back . Vital Signs: 14:18 Weight 127.01 kg; Height 6 ft. 6 in. ; Pain 10/10; as6 14:36 BP 138 / 71; Pulse 95; Resp 19 S; Pulse Ox 95% on R/A; kc6 14:18 Body Mass Index 32.36 (127.01 kg, 198.12 cm) as6 14:18 Pain Scale: Adult as6 MDM: 14:09 Patient medically screened. kb 15:19 Differential diagnosis: anaphylaxis, angioedema, urticaria. Data reviewed: vital signs, kb nurses notes. Counseling: I had a detailed discussion with the patient and/or guardian regarding the historical points, exam findings, and any diagnostic results supporting the discharge/admit diagnosis, the need for outpatient follow up, a family practitioner, to return to the emergency department if symptoms worsen or persist or if there are any questions or concerns that arise at home. Response to treatment: the patient's symptoms have markedly improved after treatment. 15:24 ED course: Pt reports he has had cellulitis in the past after a wasp sting. Antibiotics kb prescribed for this reason. 02/12 14:13 Order name: IV Start; Complete Time: 14:19 kb Administered Medications: 14:32 Drug: MethylPrednisoLONE IVP 125 mg IVP once Route: IVP; Site: left antecubital; kc6 14:59 Follow up: Response: No adverse reaction kc6 14:32 Drug: NS 0.9% IV 1000 ml IV at 1000 ml once Route: IV; Rate: 1000 ml; Site: left kc6 antecubital; 15:22 Follow up: Response: No adverse reaction; IV Status: Completed infusion; IV Intake: kc6 1000ml 14:32 Drug: diphenhydrAMINE IVP 25 mg IVP once Route: IVP; Site: left antecubital; kc6 14:59 Follow up: Response: No adverse reaction kc6 14:32 Drug: Ondansetron IVP 4 mg IVP once; over 2 minutes Route: IVP; Site: left antecubital; kc6 14:59 Follow up: Response: No adverse reaction kc6 14:32 Drug: Famotidine IVP 20 mg IVP once; dilute with 10 mL 0.9% NaCl; give over 2 minutes kc6 Route: IVP; Site: left antecubital; 14:59 Follow up: Response: No adverse reaction kc6 Disposition Summary: 02/13/24 15:23 Discharge Ordered Notes: Location: Home kb Condition: Stable kb Diagnosis - Allergic reaction to wasp sting kb Followup: kb - With: Emergency Department - When: As needed - Reason: Worsening of condition Followup: kb - With: Private Physician - When: 2 - 3 days - Reason: Recheck today's complaints, Continuance of care, Re-evaluation by your physician Discharge Instructions: - Discharge Summary Sheet kb - Bee, Wasp, or Hornet Sting, Adult kb Forms: - Medication Reconciliation Form kb - Antibiotic Education kb - Prescription Opioid Use kb - Patient Portal Instructions kb - Leadership Thank You Letter kb Prescriptions: - Clindamycin HCl 300 mg Oral Capsule - take 1 capsule ORAL route every 6 hours for 10 days; 40 capsule; Refills: 0, kb Product Selection Permitted - Pepcid 20 mg Oral Tablet - take 1 tablet ORAL route every 12 hours for 5 days; 10 tablet; Refills: 0, kb Product Selection Permitted - Prednisone 20 mg Oral Tablet - take 1 tablet ORAL route once daily for 5 days; 5 tablet; Refills: 0, Product kb Selection Permitted Signatures: Cathy Vázquez, David Brice RN RN as6 Diana Dawkins RN RN kc6
--- NOTE | 2024-02-13 15:23 | ER ---
Nurse's Notes [facility] Name: David Rivera Sr Age: 63 yrs Sex: Male : 1960 Arrival Date: 02/13/2024 Time: 14:06 Bed Treatment Private MD: Diagnosis: Allergic reaction to wasp sting Presentation: 02/12 14:13 Chief complaint: Patient states: stung by a wasp. Coronavirus screen: At this time, the as6 client does not indicate any symptoms associated with coronavirus-19. Ebola Screen: No symptoms or risks identified at this time. Risk Assessment: Do you want to hurt yourself or someone else? Patient reports no desire to harm self or others. Onset of symptoms was February 12, 2024. 14:13 Method Of Arrival: Ambulatory as6 14:13 Acuity: KAITLYN 4 as6 Historical: - Allergies: 14:20 Iodinated Contrast Media - IV Dye; as6 14:20 Naproxen; as6 14:20 Sulfa (Sulfonamide Antibiotics); as6 14:20 PENICILLINS; as6 14:20 meloxicam; as6 - PMHx: 14:20 Hypertensive disorder; Chronic obstructive lung disease; as6 - PSHx: 14:20 arm; neck; as6 - Immunization history:: Adult Immunizations up to date. - Infectious Disease History:: Denies. - Social history:: Smoking status: Patient denies any tobacco usage or history of. Screenin:42 [facility] ED Fall Risk Assessment (Adult) History of falling in the last 3 months, kc6 including since admission No falls in past 3 months (0 pts) Confusion or Disorientation No (0 pts) Intoxicated or Sedated No (0 pts) Impaired Gait No (0 pts) Mobility Assist Device Used No (0 pt) Altered Elimination No (0 pt) Score/Fall Risk Level 0 - 2 = Low Risk. Abuse screen: Denies threats or abuse. Denies injuries from another. Nutritional screening: No deficits noted. Tuberculosis screening: No symptoms or risk factors identified. Assessment: 14:42 General: Appears in no apparent distress. comfortable, well groomed, well developed, kc6 Behavior is calm, cooperative, appropriate for age. Neuro: Level of Consciousness is awake, alert, obeys commands, Oriented to person, place, time, situation, Appropriate for age Reports dizziness. Cardiovascular: Denies chest pain, Heart tones S1 S2 present Capillary refill < 3 seconds. Respiratory: Reports pain with respiration Airway is patent Trachea midline Respiratory effort is even, unlabored, Respiratory pattern is regular, symmetrical, Breath sounds are clear bilaterally. GI: Reports nausea, Patient currently denies abdominal pain, diarrhea, vomiting. : No signs and/or symptoms were reported regarding the genitourinary system. EENT: No signs and/or symptoms were reported regarding the EENT system. Derm: No signs and/or symptoms reported regarding the dermatologic system. Skin is intact, is healthy with good turgor, Skin is pink, warm \T\ dry. Musculoskeletal: No signs and/or symptoms reported regarding the musculoskeletal system. Circulation, motion, and sensation intact. Capillary refill < 3 seconds, Range of motion: intact in all extremities. Vital Signs: 14:18 Weight 127.01 kg; Height 6 ft. 6 in. ; Pain 10/10; as6 14:36 BP 138 / 71; Pulse 95; Resp 19 S; Pulse Ox 95% on R/A; kc6 14:18 Body Mass Index 32.36 (127.01 kg, 198.12 cm) as6 14:18 Pain Scale: Adult as6 ED Course: 14:08 Patient arrived in ED. mr 14:09 Cathy Vázquez, [facility] kb 14:09 Esequiel Richardson MD is Attending Physician. kb 14:13 Arm band placed on. as6 14:14 Triage completed. as6 14:15 Diana Dawkins, THEO is Primary Nurse. kc6 14:19 Inserted saline lock: 20 gauge in left antecubital area, using aseptic technique. as6 14:42 Patient has correct armband on for positive identification. Bed in low position. Call kc6 light in reach. Side rails up X 1. Adult w/ patient. Pulse ox on. NIBP on. Pillow given. 15:42 No provider procedures requiring assistance completed. IV discontinued, intact, ap3 bleeding controlled, No redness/swelling at site. Pressure dressing applied. Administered Medications: 14:32 Drug: MethylPrednisoLONE IVP 125 mg IVP once Route: IVP; Site: left antecubital; kc6 14:59 Follow up: Response: No adverse reaction [facility] 14:32 Drug: NS 0.9% IV 1000 ml IV at 1000 ml once Route: IV; Rate: 1000 ml; Site: left kc6 antecubital; 15:22 Follow up: Response: No adverse reaction; IV Status: Completed infusion; IV Intake: kc6 1000ml 14:32 Drug: diphenhydrAMINE IVP 25 mg IVP once Route: IVP; Site: left antecubital; kc6 14:59 Follow up: Response: No adverse reaction kc6 14:32 Drug: Ondansetron IVP 4 mg IVP once; over 2 minutes Route: IVP; Site: left antecubital; kc6 14:59 Follow up: Response: No adverse reaction kc6 14:32 Drug: Famotidine IVP 20 mg IVP once; dilute with 10 mL 0.9% NaCl; give over 2 minutes kc6 Route: IVP; Site: left antecubital; 14:59 Follow up: Response: No adverse reaction kc6 Medication: 15:42 VIS not applicable for this client. ap3 Intake: 15:22 IV: 1000ml; Total: 1000ml. kc6 Outcome: 15:23 Discharge ordered by . kb 15:42 Discharged to home ambulatory, with significant other, ap3 15:42 Condition: stable 15:42 Discharge instructions given to patient, significant other, Instructed on discharge instructions, follow up and referral plans. medication usage, Demonstrated understanding of instructions, follow-up care, medications, Prescriptions given X 3, 15:42 Patient left the ED. ap3 Signatures: Cathy Vázquez, PR SPECIALIST-C PR SPECIALIST-Ckb LainezErna, Reg Reg mr Michelle Wallace RN RN ap3 David Ricketts RN RN as6 Diana Dawkins RN RN kc6 Corrections: (The following items were deleted from the chart) 14:19 14:13 Onset of symptoms was February 13, 2024 as6 as6
[2024-02-13 16:10] VITALS: BP 138/71; O2SAT 95
== END 2024-02-13 15:42 | disposition home or self-care (01) ==
LOC: ER 14:06
DX: T63.461A Toxic effect of venom of wasps, accidental (unintentional), initial encounter (principal); Z91.038 Other insect allergy status
CPT/HCPCS: 96361; 96375; 96374; 99284; J1200; J2919; J2405; J7030

== ENCOUNTER 2025-07-10 13:11 | Emergency (ER) | payer OTHER ==
[2025-07-10] MEDS ORDERED: MORPHINE 2 MG/ML SYR ONE (14:09)
[2025-07-10] MEDS ORDERED: NA CHLORIDE 0.9% 1,000 ML ONE (14:09)
[2025-07-10] MEDS ORDERED: ONDANSETRON 4 MG/2 ML VIAL ONE (14:09)
[2025-07-10 14:16] LABS: Absolute Lymphocytes (CBC) 1.7 K/uL (0.7-4.9); Hematocrit 39.3 % (39.6-49.0); Hemoglobin 13.2 g/dL (13.6-17.9); MCH 29.5 pg (27.0-35.0); MCHC 33.6 g/dL (32.0-36.0); MCV 87.9 fL (80-100); MPV 7.3 fL (7.6-11.3); Nucleated RBC Absolute Count 0.0 (0-0); Nucleated Red Blood Cells % 0.0 % (0-0); RBC Red Blood Cell Count 4.47 M/uL (4.33-5.43); White Blood Count 8.10 thou/uL (4.3-10.9)
--- NOTE | 2025-07-10 14:18 | RAD REPORT ---
EXAMINATION: CT ABDOMEN AND PELVIS WITHOUT CONTRAST CLINICAL INDICATION: ABD PAIN TECHNIQUE: CT abdomen and pelvis was performed, without IV contrast, as per department protocol. Axia l, sagittal and coronal reconstructions were obtained. One or more of the following dose reduction techniques were used: Automated exposure control, adjustment of the mA and kV according to the patien t size, and iterative reconstruction. Unless otherwise specified, incidental findings do not require dedicated imaging follow-up. COMPARISON: No prior exam. FINDINGS: The lack of intravenous contrast limits the sensitivity of this exam for evaluation of solid visceral organs, vascular structures, and retroperitoneum. LOWER CHEST: The visualized lung bases are clear. LIVER:Normal in size and contour. No focal lesion. Grossly unremarkable gallbladder. SPLEEN: Normal size. No focal lesion. PANCREAS: No mass, ductal dilation, or herrera-pancreatic fluid. ADRENALS: Normal; no mass. KIDNEYS AND URETERS: Normal size and contour. No hydronephrosis. URINARY BLADDER: Normal contour. GASTROINTESTINAL TRACT: No evidence of bowel obstruction, significant free fluid, free air or abscess . There is moderate diverticulosis coli of the sigmoid colon with subtle surrounding inflammation left flank. APPENDIX: Normal appendix. LYMPH NODES: No lymphadenopathy. MUSCULOSKELETAL: No acute or suspicious osseous abnormality. ADDITIONAL FINDINGS: Small fat-containing umbilical hernia. IMPRESSION: Moderate diverticulosis coli of the descending colon and sigmoid colon is present. There is subtle in flammation surrounding a portion of the descending colon distally suggesting mild acute diverticulitis.
[2025-07-10 14:39] LABS: ALT/SGPT 25.0 U/L (16-61); Albumin 3.3 g/dL (3.4-5.0); Albumin/Globulin Ratio 0.8 (1.1-1.8); Alkaline Phosphatase 77.0 U/L (45-117); Anion Gap 6.1 mEq/L (5.0-15.0); BUN Blood Urea Nitrogen 15.0 mg/dL (7-18); Globulin 4.2 g/dL (2.3-3.5); Glucose Level 97.0 mg/dL (74-106); Lipase 24.0 U/L (13-75)
[2025-07-10 14:40] LABS: AST/SGOT 41.0 U/L (15-37); Potassium 4.1 mEq/L (3.5-5.1)
[2025-07-10] MEDS ORDERED: CIPROFLOXACIN 400mg IV 400 MG/200 ML BAG IV ONE (14:53)
--- NOTE | 2025-07-10 15:35 | ER ---
Nurse's Notes [facility] Name: David Rivera Sr Age: 65 yrs Sex: Male : 1960 Arrival Date: 07/10/2025 Time: 13:11 Bed 17 Private MD: Diagnosis: Diverticulitis of large intestine without perforation or abscess without bleeding Presentation: 07/10 13:26 Chief complaint: Patient states: he is having left sided belly pain, that is worse when ap3 he stretches. patient also complains of left ear pain and left throat pain. patient states he has been on cipro since Monday07/05/25. Coronavirus screen: At this time, the client does not indicate any symptoms associated with coronavirus-19. Ebola Screen: No symptoms or risks identified at this time. Initial Sepsis Screen: Does the patient meet any 2 criteria? No. Patient's initial sepsis screen is negative. Does the patient have a suspected source of infection? No. Patient's initial sepsis screen is negative. Risk Assessment: Do you want to hurt yourself or someone else? Patient reports no desire to harm self or others. Onset of symptoms is unknown. 13:26 Method Of Arrival: Ambulatory ap3 13:26 Acuity: KAITLYN 3 ap3 Triage Assessment: 13:28 General: Appears in no apparent distress. Behavior is calm, cooperative, appropriate ap3 for age. Pain: Complains of pain in left upper quadrant and left lower quadrant, left ear and throat. EENT: Reports pain when swallowing. Neuro: Level of Consciousness is awake, alert, obeys commands, Oriented to person, place, time, situation, Appropriate for age. Cardiovascular: Patient's skin is warm and dry. Respiratory: Airway is patent Respiratory effort is even, unlabored, Respiratory pattern is regular, symmetrical. GI: Reports lower abdominal pain, upper abdominal pain. Historical: - Allergies: 13:27 Iodinated Contrast Media - IV Dye; ap3 13:27 Naproxen; ap3 13:27 meloxicam; ap3 13:27 PENICILLINS; ap3 13:27 Sulfa (Sulfonamide Antibiotics); ap3 13:28 "all blood pressure medications"; ap3 - PMHx: 13:27 Chronic obstructive lung disease; Hypertensive disorder; ap3 - PSHx: 13:27 arm; neck; ap3 - Immunization history:: Flu vaccine is not up to date. - Infectious Disease History:: Denies. - Social history:: Smoking status: Patient denies any tobacco usage or history of. Screenin:30 [facility] ED Fall Risk Assessment (Adult) History of falling in the last 3 months, ap3 including since admission No falls in past 3 months (0 pts) Confusion or Disorientation No (0 pts) Intoxicated or Sedated No (0 pts) Impaired Gait No (0 pts) Mobility Assist Device Used No (0 pt) Altered Elimination No (0 pt) Score/Fall Risk Level 0 - 2 = Low Risk Oriented to surroundings, Maintained a safe environment, Educated pt \\T\\ family on fall prevention, incl call for assistance when getting out of bed, Assessed \\T\\ reinforced patient's understanding of fall precautions, Hourly rounding (assess needs \\T\\ fall precautionary measures) done, Used ambulatory aids as needed (educated on \\T\\ assisted with). Abuse screen: Denies threats or abuse. Nutritional screening: No deficits noted. Tuberculosis screening: No symptoms or risk factors identified. Assessment: 13:42 General: Appears in no apparent distress. uncomfortable, Behavior is calm, cooperative, dd2 appropriate for age. Pain: Complains of pain in left lower quadrant and left upper quadrant Pain currently is 6 out of 10 on a pain scale. Neuro: No deficits noted. Cardiovascular: No deficits noted. Respiratory: No deficits noted. GI: Abdomen is round non-distended, Bowel sounds present X 4 quads. Abd is soft X 4 quads Abdomen is tender to palpation in left lower quadrant and left upper quadrant Reports upper abdominal pain. : No deficits noted. No signs and/or symptoms were reported regarding the genitourinary system. EENT: No deficits noted. No signs and/or symptoms were reported regarding the EENT system. Derm: No deficits noted. No signs and/or symptoms reported regarding the dermatologic system. Musculoskeletal: No deficits noted. No signs and/or symptoms reported regarding the musculoskeletal system. Circulation, motion, and sensation intact. Range of motion: intact in all extremities. 16:04 Reassessment: D/C HELD FOR IV ANTIBIOTIC COMPLETION. dd2 Vital Signs: 13:26 BP 149 / 94; Pulse 87; Resp 18; Temp 98.4; Pulse Ox 96% ; Weight 124.74 kg; Height 6 ap3 ft. 6 in. ; Pain 4/10; 13:50 BP 149 / 78; Pulse 81; Resp 16; Pulse Ox 97% on R/A; dd2 14:30 BP 136 / 73; Pulse 77; Resp 17; Pulse Ox 96% on R/A; dd2 15:30 BP 133 / 79; Pulse 72; Resp 16; Pulse Ox 97% on R/A; dd2 13:26 Body Mass Index 31.78 (124.74 kg, 198.12 cm) ap3 13:26 Pain Scale: Adult ap3 Tatianna Coma Score: 13:42 Eye Response: spontaneous(4). Verbal Response: oriented(5). Motor Response: obeys dd2 commands(6). Total: 15. ED Course: 13:14 Patient arrived in ED. mr 13:14 Drew Gallegos FNP-C [facility]. dr5 13:14 Ulisses Lao MD is Attending Physician. dr5 13:27 Triage completed. ap3 13:30 Arm band placed on right wrist. ap3 13:42 Patient has correct armband on for positive identification. Bed in low position. Call dd2 light in reach. Side rails up X 1. Client placed on continuous cardiac and pulse oximetry monitoring. NIBP monitoring applied. Door closed. Noise minimized. Warm blanket given. Pillow given. Verbal reassurance given. 13:42 Patient maintains SpO2 saturation greater than 95% on room air. dd2 13:48 CT Abd/Pelvis - Without Contrast In Process Unspecified. EDMS 14:06 No provider procedures requiring assistance completed. Inserted saline lock: 20 gauge dd2 in right antecubital area, using aseptic technique. Blood collected. Flushed with 10 mL NS. 16:04 Provided Education on: D/C EDUCATION. dd2 16:04 IV discontinued, intact, bleeding controlled, No redness/swelling at site. Pressure dd2 dressing applied. Administered Medications: 14:19 Drug: Ondansetron IVP 4 mg IVP once; over 2 minutes Route: IVP; Site: right antecubital;dd2 14:35 Follow up: Response: No adverse reaction dd2 14:19 Drug: NS 0.9% IV 1000 ml IV at 1 bolus Per protocol; to be given as a bolus over 60 dd2 minutes Route: IV; Rate: 1 bolus; Site: right antecubital; 15:19 Follow up: IV Status: Completed infusion dd2 14:20 Drug: morphine IVP or IV 4 mg IVP once over 4 mins Route: IVP; Infused Over: 4 mins; dd2 Site: right antecubital; 14:35 Follow up: Response: No adverse reaction dd2 14:48 CANCELLED (Inappropriate at this time): [id number] mg 100 ml IVPB once over 30 dr5 mins 15:04 Drug: Ciprofloxacin IVPB 400 mg 200 ml IVPB once over 60 mins Volume: 200 ml; Route: dd2 IVPB; Infused Over: 60 mins; Site: right antecubital; 16:00 Follow up: IV Status: Completed infusion dd2 15:04 Drug: metroNIDAZOLE PO 500 mg PO once Route: PO; dd2 15:35 Follow up: Response: No adverse reaction dd2 Medication: 13:42 VIS not applicable for this client. dd2 Outcome: 15:34 Discharge ordered by MD. dr5 16:04 Discharged to home ambulatory, dd2 16:04 Condition: stable 16:04 Discharge instructions given to patient, family, Instructed on discharge instructions, follow up and referral plans. medication usage, Demonstrated understanding of instructions, follow-up care, medications, Prescriptions given X 2, 16:07 Patient left the ED. dd2 Signatures: Dispatcher [employer] ED[facility] Erna Lainez, Michelle Prakash RN RN ap3 AI SNYDER RN RN dd2 Drew Gallegos, ORCHARD WORKER-C ORCHARD WORKER-Cdr5
--- NOTE | 2025-07-10 15:35 | EDPHYS ---
Physician Documentation [facility] Name: David Rivera Sr Age: 65 yrs Sex: Male : 1960 Arrival Date: 07/10/2025 Time: 13:11 Bed 17 Private MD: ED Physician Ulisses Lao HPI: 07/10 14:06 This 65 yrs old Male presents to ER via Ambulatory with complaints of dr5 Abdominal Pain, Sore Throat, Ear Pain. 14:06 The patient presents with abdominal pain in the left upper quadrant. Onset: The dr5 symptoms/episode began/occurred 5 day(s) ago. Patient is a 65-year-old male with history of COPD, hypertension, and history of diverticulitis coming in with left upper quadrant pain, sore throat, left ear pain has been going on for 5 days. Patient reports that he told his primary care doctor who called him in ciprofloxacin. Patient reports taking ciprofloxacin with no relief. Patient denies chest pain, shortness of breath, nausea, vomiting, diarrhea. Patient states that he takes tramadol for chronic neck pain which causes him constipation.. Historical: - Allergies: 13:27 Iodinated Contrast Media - IV Dye; ap3 13:27 Naproxen; ap3 13:27 meloxicam; ap3 13:27 PENICILLINS; ap3 13:27 Sulfa (Sulfonamide Antibiotics); ap3 13:28 "all blood pressure medications"; ap3 - PMHx: 13:27 Chronic obstructive lung disease; Hypertensive disorder; ap3 - PSHx: 13:27 arm; neck; ap3 - Immunization history:: Flu vaccine is not up to date. - Infectious Disease History:: Denies. - Social history:: Smoking status: Patient denies any tobacco usage or history of. ROS: 14:06 Constitutional: as per hpi dr5 Exam: 14:39 Constitutional: This is a well developed, well nourished patient who is awake, alert, dr5 and in no acute distress. Head/Face: Normocephalic, atraumatic. Eyes: Pupils equal round and reactive to light, extra-ocular motions intact. Lids and lashes normal. Conjunctiva and sclera are non-icteric and not injected. Cornea within normal limits. Periorbital areas with no swelling, redness, or edema. 14:39 Neck: Trachea midline, no thyromegaly or masses palpated, and no cervical lymphadenopathy. Supple, full range of motion without nuchal rigidity, or vertebral point tenderness. No Meningismus. Chest/axilla: Normal chest wall appearance and motion. Nontender with no deformity. No lesions are appreciated. Cardiovascular: Regular rate and rhythm with a normal S1 and S2. Normal PMI, no JVD. No pulse deficits. Respiratory: Lungs have equal breath sounds bilaterally, clear to auscultation. No rales, rhonchi or wheezes noted. No increased work of breathing, no retractions or nasal flaring. Back: No spinal tenderness. No costovertebral tenderness. Full range of motion. Skin: Warm, dry with normal turgor. Normal color with no rashes, no lesions, and no evidence of cellulitis. MS/ Extremity: Pulses equal, no cyanosis. Neurovascular intact. Full, normal range of motion. Neuro: Awake and alert, GCS 15, oriented to person, place, time, and situation. Cranial nerves II-XII grossly intact. Motor strength 5/5 in all extremities. Sensory grossly intact. Cerebellar exam normal. Normal gait. 14:39 ENT: External ear(s): are unremarkable, no acute changes, Ear canal(s): are normal, no acute changes, TM's: are normal, no acute changes, fluid levels, bilaterally, Nose: is normal, no acute changes, Mouth: is normal, no acute changes, Posterior pharynx: is normal, no acute changes, 14:39 Abdomen/GI: Inspection: abdomen appears normal, Bowel sounds: normal, Palpation: mild abdominal tenderness, in the left upper quadrant and left lower quadrant, Vital Signs: 13:26 BP 149 / 94; Pulse 87; Resp 18; Temp 98.4; Pulse Ox 96% ; Weight 124.74 kg; Height 6 ap3 ft. 6 in. ; Pain 4/10; 13:50 BP 149 / 78; Pulse 81; Resp 16; Pulse Ox 97% on R/A; dd2 14:30 BP 136 / 73; Pulse 77; Resp 17; Pulse Ox 96% on R/A; dd2 15:30 BP 133 / 79; Pulse 72; Resp 16; Pulse Ox 97% on R/A; dd2 13:26 Body Mass Index 31.78 (124.74 kg, 198.12 cm) ap3 13:26 Pain Scale: Adult ap3 Tatianna Coma Score: 13:42 Eye Response: spontaneous(4). Verbal Response: oriented(5). Motor Response: obeys dd2 commands(6). Total: 15. MDM: 13:15 Medical Screening Exam initiated dr5 14:39 Differential diagnosis: diverticulitis, gastroesophageal reflux disease, non-specific dr5 abd pain. Data reviewed: vital signs, nurses notes, lab test result(s), CBC, white blood cell count, hemoglobin, hematocrit, platelets, electrolytes, sodium, potassium, chloride, serum bicarbonate, BUN, creatinine, serum glucose, radiologic studies, CT scan. Consideration of Admission/Observation Escalation of care including admission/observation considered. Escalation considered patient found to have diverticulitis with perforation. I considered the following discharge prescriptions or medication management in the emergency department I discussed and recommended Over The Counter medications, Medications were administered in the Emergency Department. See MAR. Historians other than the Patient: Spouse/Significant Other: Spouse. Care significantly affected by the following chronic conditions: Hypertension, Chronic Obstructive Pulmonary Disease. Care significantly affected by the following Social Determinants of Health: Poor access to healthcare and/or lack of insurance, Poor access to transportation, Problems related to employment. Counseling: I had a detailed discussion with the patient and/or guardian regarding the historical points, exam findings, and any diagnostic results supporting the discharge/admit diagnosis, the presence of at least one elevated blood pressure reading (>120/80) during this emergency department visit, lab results, radiology results, the need for outpatient follow up, for definitive care, a family practitioner, to return to the emergency department if symptoms worsen or persist or if there are any questions or concerns that arise at home. Medication response: Morphine, Zofran, Cipro, Flagyl. Response to treatment: the patient's symptoms have markedly improved after treatment. Special discussion: I discussed with the patient/guardian in detail that at this point there is no indication for admission to the hospital. It is understood, however, that if the symptoms persist or worsen the patient needs to return immediately for re-evaluation. Based on the history and exam findings, there is no indication for further emergent testing or inpatient evaluation. I discussed with the patient/guardian the need to see the primary care provider for further evaluation of the symptoms. ED course: Cipro and Flagyl given in ER. Patient found to have acute mild diverticulitis. Will add on metronidazole and continue ciprofloxacin. Recommend patient follow primary care doctor. All question answered. Strict ER precautions given. 07/10 13:36 Order name: CBC with Diff; Complete Time: 14:36 dr5 07/10 13:36 Order name: CMP; Complete Time: 14:44 dr5 07/10 13:36 Order name: Lipase; Complete Time: 14:44 dr5 07/10 13:36 Order name: CT Abd/Pelvis - Without Contrast; Complete Time: 14:20 dr5 07/10 13:36 Order name: IV Saline Lock; Complete Time: 14:06 dr5 07/10 13:36 Order name: Labs collected and sent; Complete Time: 14:06 dr5 Administered Medications: 14:19 Drug: Ondansetron IVP 4 mg IVP once; over 2 minutes Route: IVP; Site: right antecubital;dd2 14:35 Follow up: Response: No adverse reaction dd2 14:19 Drug: NS 0.9% IV 1000 ml IV at 1 bolus Per protocol; to be given as a bolus over 60 dd2 minutes Route: IV; Rate: 1 bolus; Site: right antecubital; 15:19 Follow up: IV Status: Completed infusion dd2 14:20 Drug: morphine IVP or IV 4 mg IVP once over 4 mins Route: IVP; Infused Over: 4 mins; dd2 Site: right antecubital; 14:35 Follow up: Response: No adverse reaction dd2 14:48 CANCELLED (Inappropriate at this time): [id number] mg 100 ml IVPB once over 30 dr5 mins 15:04 Drug: Ciprofloxacin IVPB 400 mg 200 ml IVPB once over 60 mins Volume: 200 ml; Route: dd2 IVPB; Infused Over: 60 mins; Site: right antecubital; 16:00 Follow up: IV Status: Completed infusion dd2 15:04 Drug: metroNIDAZOLE PO 500 mg PO once Route: PO; dd2 15:35 Follow up: Response: No adverse reaction dd2 Disposition Summary: 07/10/25 15:34 Discharge Ordered Notes: Location: Home dr5 Condition: Stable dr5 Diagnosis - Diverticulitis of large intestine without perforation or abscess without bleeding dr5 Followup: dr5 - With: Emergency Department - When: As needed - Reason: Worsening of condition Followup: dr5 - With: Private Physician - When: 1 - 2 days - Reason: Recheck today's complaints, Continuance of care, Re-evaluation by your physician Discharge Instructions: - Discharge Summary Sheet dr5 - Diverticulitis dr5 Forms: - Medication Reconciliation Form dr5 - Antibiotic Education dr5 - Patient Portal Instructions dr5 - Leadership Thank You Letter dr5 Prescriptions: - Flagyl 500 mg Oral Tablet - take 1 tablet ORAL route every 12 hours for 7 days; 14 tablet; Refills: 0, dr5 Product Selection Permitted - Cipro 500 mg Oral Tablet - take 1 tablet ORAL route every 12 hours for 7 days; 14 tablet; Refills: 0, dr5 Product Selection Permitted Signatures: Dispatcher [employer] Michelle Miranda RN RN ap3 AI SNYDER RN RN dd2 Drew Gallegos, [employer]-5 Corrections: (The following items were deleted from the chart) 14:48 14:21 metroNIDAZOLE IVPB 500 mg 100 ml IVPB once over 30 mins ordered. dr5 dr5
[2025-07-10 16:13] VITALS: TEMP 98.4
[2025-07-10 16:17] VITALS: BP 133/79; O2SAT 97
== END 2025-07-10 16:07 | disposition home or self-care (01) ==
LOC: ER 13:11
DX: K57.32 Diverticulitis of large intestine without perforation or abscess without bleeding (principal)
CPT/HCPCS: 96365; 96361; 85025; 36415; 83690; 80053; 74176; 96375; 99284; J2270; J2405; J0744; J7030